=== PATIENT | female | born 1935 | race Caucasian/White ===

== ENCOUNTER → 2020-03-23 12:30 | Outpatient (BNVA) | payer MEDICARE, SELFPAY | PROVIDERS: PCP Internal Medicine; Referring Provider Internal Medicine; Visit Provider Physician Assistant | DX: M17.12 Unilateral primary osteoarthritis, left knee (principal) | CPT/HCPCS: 20610; 99212; J1040 ==

== ENCOUNTER 2023-07-09 10:16 | Outpatient (REF) | payer MEDICARE, SELFPAY ==
--- NOTE | ~2023-07-09 | XR_ITS ---
EXAMINATION: XR KNEE, RIGHT CLINICAL INFORMATION: Osteoarthritis. COMPARISON: Radiograph right knee 10/30/2018. TECHNIQUE: Three views of the right knee. FINDINGS: Severe tricompartmental degenerative osteoarthritis with joint space narrowing, subcortical sclerosis and marginal osteophytes, increased compared to 2019. Moderate chondrocalcinosis also increased compared to 2019. No discrete fractures, although evaluation of subtle osseous details is limited in view of the background of degenerative changes. No joint effusion. Diffuse nonspecific soft tissue swelling. Scattered vascular calcifications. XR/XR knee RT 3V IMPRESSION: 1. Severe tricompartmental degenerative osteoarthritis, increased compared to 2019. 2. Moderate chondrocalcinosis, increased compared to 2019. 3. No discrete fractures, although evaluation is limited in view of the background of degenerative changes.
== END 2023-07-09 10:17 | disposition home or self-care (01) ==
LOC: HO.HOSX 10:16
PROVIDERS: Visit Provider Orthopaedic Surgery
DX: M17.11 Unilateral primary osteoarthritis, right knee (principal)
CPT/HCPCS: 73562; 99202

== ENCOUNTER 2023-07-09 10:36 | Outpatient (AMB) | payer MEDICARE, SELFPAY ==
--- NOTE | 2023-07-09 10:41 | MHC.OFFVIS ---
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 The patient states that several years ago she underwent right knee arthroscopic surgery by Dr. Rosales. She got fairly good relief from that surgery initially. Over the last year her discomfort and mechanical symptoms have gotten worse. She states that her right knee will give out several times per day. She has had cortisone injections in the past. The most recent injection gave her minimal relief. She has not able to tolerate anti-inflammatory medicines because she is on Eliquis. She wishes to hold off on surgery for as long as possible. Allergies omeprazole [From PRILOSEC] Allergy (Intermediate, Verified 03/23/20 12:37) HEADACHE Medication List - Last Reconciled 07/09/23 by Kyrie Marks MD alendronate (Fosamax) 70 mg PO QWEEK amiodarone 100 mg PO DAILY apixaban (Eliquis) 2.5 mg PO BID cholecalciferol (vitamin D3) 10 mcg PO DAILY diltiazem HCl (Cardizem) 30 mg PO TID mecobalamin (vitamin B12) mcg IM metoprolol succinate ER 12.5 mg PO DAILY rosuvastatin 5 mg PO DAILY [facility] Surgical History (Updated 07/09/23 @ 10:59 by Rosaura Williamson CMA) History of cholecystectomy (~2003) Hx of right knee surgery (Unknown) Social History (Updated 07/09/23 @ 10:57 by Rosaura Williamson CMA) Patient Tobacco Use Status: Never used Tobacco Physical Exam Vital Signs: BMI result Body Mass Index 23.3 Const Other: Well-nourished well-developed very friendly female awake alert and oriented x3 in no acute distress Extrem Other: Bilateral lower extremity examination shows good capillary refill, no skin lesions noted, normal sensation light touch Right knee examination shows a minimal effusion, palpable crepitus with range of motion, tenderness along her medial joint line, positive Lianne's test Results Reviewed Results Reviewed: X-rays of the patient's right knee show moderate joint space narrowing, subchondral sclerosis, no acute bony abnormalities Assessment & Plan Assessment & Plan (1) Right knee pain: Code(s): M25.561 - Pain in right knee Plan Ms. Mcgrath presents with right knee pain and mechanical symptoms due to degenerative joint disease as well as possible meniscus tearing. I had a lengthy discussion with the patient regarding the treatment options. She wishes to hold off on total knee replacement surgery for as long as possible. I agree with this plan. The patient was fitted for a knee brace to help with her symptoms of instability. I do feel that the knee brace is a medical necessity to help prevent future falls. She has had cortisone injections in the past which gave her minimal relief. Thus, I will see whether or not the patient's insurance company will cover a viscosupplementation injection. I will see her back once the injection is available. Feel free to call me at any time should questions regarding her orthopedic management arise. Thank you very much for asking me to see this very friendly patient. I spent 22 minutes in reviewing the patient's records and imaging studies, seeing the patient and documenting in the medical record. Orders: Orders XR knee RT 3V Today M17.11 - Unilateral primary osteoarthritis, right knee Coding Level of Care Code New Pt Level 2 (38494) Diagnoses Right knee pain M25.561
[2023-07-09 10:49] VITALS: BMI 23.3
== END 2023-07-09 11:21 | disposition home or self-care (01) ==
PROVIDERS: PCP Internal Medicine; Visit Provider Orthopaedic Surgery
DX: M25.561 Pain in right knee (principal)
CPT/HCPCS: 99202

== ENCOUNTER → 2023-07-18 13:13 | Outpatient (BNVA) | payer MEDICARE, SELFPAY | PROVIDERS: PCP Internal Medicine; Visit Provider Orthopaedic Surgery ==

== ENCOUNTER 2023-07-29 13:08 | Outpatient (AMB) | payer MEDICARE, SELFPAY ==
[2023-07-29 13:28] VITALS: BMI 23.3
--- NOTE | 2023-07-29 13:28 | A.OFFVIS_ITS ---
Intake Vital Signs 07/29/23 13:28 Height 5 ft 5 in Weight 140 lb BMI 23.3 Intake Visit Reasons: OV- Right knee Geil-One injection Intake Note: Mignon is a 87 year old female who presents for her Right knee Gel-One injection. She describes her right knee pain as sharp in nature. She has had cortisone injections in the past which gave her minimal relief. She has tried Tylenol which gives her only mild relief. She has not able to take anti- inflammatory medicines because she is on Eliquis. She wishes to hold off on surgery if at all possible. Allergies omeprazole [From PRILOSEC] Allergy (Intermediate, Verified 07/29/23 13:28) HEADACHE Medication List - Last Reconciled 07/29/23 by Kyrie Marks MD alendronate (Fosamax) 70 mg PO QWEEK amiodarone 100 mg PO DAILY apixaban (Eliquis) 2.5 mg PO BID cholecalciferol (vitamin D3) 10 mcg PO DAILY diltiazem HCl (Cardizem) 30 mg PO TID mecobalamin (vitamin B12) mcg IM metoprolol succinate ER 12.5 mg PO DAILY rosuvastatin 5 mg PO DAILY [facility] Surgical History History of cholecystectomy (~2003) Hx of right knee surgery (Unknown) Social History Patient Tobacco Use Status: Never used Tobacco Physical Exam Vital Signs: BMI result Body Mass Index 23.3 Const Other: Well-nourished well-developed very friendly female awake alert and oriented x3 in no acute distress Extrem Other: Bilateral lower extremity examination shows good capillary refill, no skin lesions noted, normal sensation light touch Right knee examination shows a large effusion, palpable crepitus with range of motion, pain with range of motion, range of motion from -3 degrees to 100 degrees, no instability Office Procedures Joint Injection/Drain Joint Injection/Drain Primary Site: right knee Prep: site was prepped using aseptic technique Injected: 1% plain lidocaine and other (30 mg of Gel-One viscosupplementation) Procedure: The patient tolerated the procedure well Coding 50386 - Large joint Procedure code (CPT) selection complete Results Reviewed Results Reviewed: X-rays of the patient's right knee show severe joint space narrowing, subchondral sclerosis, no acute bony abnormalities Assessment & Plan Assessment & Plan (1) Arthritis of right knee: Code(s): M17.11 - Unilateral primary osteoarthritis, right knee Plan Ms. Mcgrath presents with right knee pain due to degenerative joint disease. I had a lengthy discussion with the patient regarding the treatment options. She wishes to hold off on total knee replacement surgery for as long as possible. I agree with this plan. She has not gotten good relief from cortisone injections in the past. Thus, the risks and benefits of a Gel-one viscosupplementation injection were discussed at length with the patient. The patient wished to proceed with the injection. Prior to the injection 30 cc's of clear fluid were aspirated from the patient's right knee. She tolerated the injection well. She will continue with her home exercise program. She will follow up with me on an as-needed basis should her symptoms not plateau at an unacceptable level over the next few months. Feel free to call me at any time should questions regarding her orthopedic management arise. I spent 22 minutes in reviewing the patient's records and imaging studies, seeing the patient and documenting in the medical record. Orders: Orders AMB Joint Injection/Aspiration Today M17.11 - Unilateral primary osteoarthritis, right knee Coding Level of Care Code Est Pt Level 2 (26475) Diagnoses Arthritis of right knee M17.11 CPT Codes Coding - 26110 Large joint: 39951 - Large joint ([id number])
== END 2023-07-29 14:00 | disposition home or self-care (01) ==
PROVIDERS: PCP Internal Medicine; Visit Provider Orthopaedic Surgery
DX: M17.11 Unilateral primary osteoarthritis, right knee (principal)
CPT/HCPCS: 20610; 99212

== ENCOUNTER → 2023-07-29 13:08 | Outpatient (BNVA) | payer MEDICARE, SELFPAY | PROVIDERS: PCP Internal Medicine; Visit Provider Orthopaedic Surgery | DX: M17.11 Unilateral primary osteoarthritis, right knee (principal) | CPT/HCPCS: 20610; 99212; J7326 ==

== ENCOUNTER 2023-10-09 11:30 | Outpatient (AMB) | payer MEDICARE, SELFPAY ==
[2023-10-09 11:30] VITALS: BMI 23.3
--- NOTE | 2023-10-09 11:30 | MHC.OFFVIS ---
Vital Signs 10/09/23 11:30 Height 5 ft 5 in Weight 140 lb BMI 23.3 Intake Visit Reasons: OV - right knee pain, last gel inj 07/29/23 Intake Note: Mignon is an 87 year old female who presents with complaints of progressively worsening right knee pain. The patient describes her pain as sharp and severe in nature, 10/10. Her pain has gotten worse over the last few years in spite of continued non operative treatments. She has had both cortisone injections and viscosupplementation injections which gave her minimal relief. She has tried Tylenol which gives only mild relief. She has not able to take anti-inflammatory medicines because she is on Eliquis. She has done physical therapy exercises which aggravated her pain. The patient has difficulty walking even short distances because of her pain. At this point her right knee pain is interfering with her activities of daily living and her ability to sleep well through the night. Allergies omeprazole [From PRILOSEC] Allergy (Intermediate, Verified 10/09/23 11:33) HEADACHE Medication List - Last Reconciled 10/09/23 by Kyrie Marks MD alendronate (Fosamax) 70 mg PO QWEEK amiodarone 100 mg PO DAILY apixaban (Eliquis) 2.5 mg PO BID cholecalciferol (vitamin D3) 10 mcg PO DAILY diltiazem HCl (Cardizem) 30 mg PO TID gabapentin 100 mg PO TID mecobalamin (vitamin B12) mcg IM metoprolol succinate ER 12.5 mg PO DAILY rosuvastatin 5 mg PO DAILY [facility] Surgical History History of cholecystectomy (~2003) Hx of right knee surgery (Unknown) Social History Patient Tobacco Use Status: Never used Tobacco Physical Exam Vital Signs: BMI result Body Mass Index 23.3 Const Other: Well-nourished well-developed very friendly female awake alert and oriented x3 in no acute distress Extrem Other: Bilateral lower extremity examination shows good capillary refill, no skin lesions noted, normal sensation light touch Right knee examination shows a minimal effusion, palpable crepitus with range of motion, pain with range of motion, range of motion from -3 degrees to 115 degrees, no instability Results Reviewed Results Reviewed: X-rays of the patient's right knee show end-stage degenerative joint disease with grade 4 [id number] arthritis, subchondral sclerosis, osteophyte formation, no acute bony abnormalities Assessment & Plan Assessment & Plan (1) Arthritis of right knee: Code(s): M17.11 - Unilateral primary osteoarthritis, right knee Category: Medical Plan Ms. Mcgrath presents with progressively worsening right knee pain due to end-stage degenerative joint disease. I had a lengthy discussion with the patient regarding the treatment options. At this point she has failed continued non operative treatments. The risks and benefits of right total knee replacement surgery were discussed at length with the patient. The patient wishes to proceed with surgery. She will be scheduled for next available date. I will see her back 1 week prior to her surgery to answer any final questions that she might have. Feel free to call me at any time should questions regarding her orthopedic management arise. I spent 20 minutes in reviewing the patient's records and imaging studies, seeing the patient and documenting in the medical record. Coding Level of Care Code Est Pt Level 3 (61661) Diagnoses Arthritis of right knee M17.11
== END 2023-10-09 12:42 | disposition home or self-care (01) ==
LOC: HO.HOS 11:30
PROVIDERS: PCP Internal Medicine; Visit Provider Orthopaedic Surgery
DX: M17.11 Unilateral primary osteoarthritis, right knee (principal)
CPT/HCPCS: 99213

== ENCOUNTER → 2023-10-09 11:30 | Outpatient (BNVA) | payer MEDICARE, SELFPAY | PROVIDERS: PCP Internal Medicine; Visit Provider Orthopaedic Surgery | DX: M17.11 Unilateral primary osteoarthritis, right knee (principal); M25.561 Pain in right knee | CPT/HCPCS: 99212 ==

== ENCOUNTER → 2023-11-13 10:58 | Outpatient (BNVA) | payer MEDICARE, SELFPAY | PROVIDERS: PCP Internal Medicine | DX: Z01.818 Encounter for other preprocedural examination (principal) ==

== ENCOUNTER 2023-12-12 08:12 | Outpatient (AMB) | payer MEDICARE, SELFPAY ==
--- NOTE | 2023-12-12 08:14 | MHC.OFFVIS ---
Intake Visit Reasons: R NAVA w/ 12/16/23 Intake Note: Mignon is an 87 year old female who presents with complaints of progressively worsening right knee pain. The patient describes her pain as sharp and severe in nature, 03/12. Her pain has gotten worse over the last few years in spite of continued non operative treatments. She has had both cortisone injections and viscosupplementation injections which gave her minimal relief. She has tried Tylenol which gives only mild relief. She has not able to take anti-inflammatory medicines because she is on Eliquis. She has done physical therapy exercises which aggravated her pain. The patient has difficulty walking even short distances because of her pain. At this point her right knee pain is interfering with her activities of daily living and her ability to sleep well through the night. Allergies omeprazole [From PRILOSEC] Allergy (Severe, Verified 12/12/23 08:14) severe headache Medication List - Last Reconciled 12/12/23 by Kyrie Marks MD alendronate (Fosamax) 70 mg PO QWEEK amiodarone 100 mg PO QAM apixaban (Eliquis) 5 mg PO BID cholecalciferol (vitamin D3) 10 mcg PO QAM diltiazem HCl ER (DILT-XR) 240 mg PO QAM gabapentin 100 mg PO TID mecobalamin (vitamin B12) 1,000 mcg IM QMONTH metoprolol succinate ER 12.5 mg PO BID rosuvastatin 10 mg PO QAM walker Folding front wheeled walker [facility] Medical History Pernicious anemia Skin cancer Arthritis History of cardioversion COPD (chronic obstructive pulmonary disease) Trigeminal neuralgia Fracture Osteopenia Osteoporosis Pancreatitis Atrial fibrillation Surgical History Hx of endoscopic retrograde cholangiopancreatography Hx of tonsillectomy Hx of vertebroplasty H/O colonoscopy History of cholecystectomy (~2003) Hx of right knee surgery (Unknown) Social History Are you a primary youth care worker to a significant other at home: No Do you presently have visiting nurse or other home services: No Patient Tobacco Use Status: Former Tobacco user Tobacco use type: Cigarette Years Smoked: 5 Physical Exam Const Other: Well-nourished well-developed very friendly female awake alert and oriented x3 in no acute distress Extrem Other: Bilateral lower extremity examination shows good capillary refill, no skin lesions noted, normal sensation light touch Right knee examination shows a minimal effusion, palpable crepitus with range of motion, pain with range of motion, range of motion from -3 degrees to 115 degrees, no instability Results Reviewed Results Reviewed: X-rays of the patient's right knee show end-stage degenerative joint disease with grade 4 [id number] arthritis, subchondral sclerosis, osteophyte formation, no acute bony abnormalities Assessment & Plan Assessment & Plan (1) Arthritis of right knee: Code(s): M17.11 - Unilateral primary osteoarthritis, right knee Category: Medical Plan Ms. Mcgrath presents with progressively worsening right knee pain due to end-stage degenerative joint disease. I had a lengthy discussion with the patient regarding the treatment options. At this point she has failed continued non operative treatments. The risks and benefits of right total knee replacement surgery were discussed at length with the patient. The patient wishes to proceed with surgery. The patient does live on the 2nd floor and she has multiple comorbidities including atrial fibrillation, trigeminal neuralgia, chronic obstructive pulmonary disease, osteoporosis with subsequent vertebroplasty, hypercholesterolemia and pernicious anemia. Because of these factors I do believe that the patient would benefit significantly from inpatient rehabilitation following her surgery. [employer] web services will be consulted for inpatient rehabilitation. I spent 22 minutes in reviewing the patient's records and imaging studies, seeing the patient and documenting in the medical record. Coding Level of Care Code Est Pt Level 3 (91023) Diagnoses Arthritis of right knee M17.11
== END 2023-12-12 08:40 | disposition home or self-care (01) ==
PROVIDERS: PCP Internal Medicine; Visit Provider Orthopaedic Surgery
DX: M17.11 Unilateral primary osteoarthritis, right knee (principal)
CPT/HCPCS: 99213

== ENCOUNTER → 2023-12-12 08:12 | Outpatient (BNVA) | payer MEDICARE, SELFPAY | PROVIDERS: PCP Internal Medicine; Visit Provider Orthopaedic Surgery | DX: M17.11 Unilateral primary osteoarthritis, right knee (principal); Z79.01 Long term (current) use of anticoagulants | CPT/HCPCS: 99212 ==

== ENCOUNTER 2023-12-16 06:11 | Inpatient (IN) | payer MEDICARE, SELFPAY ==
[2023-12-10 13:22] VITALS: BP 109/55; PULSE 65; RESP 18; O2SAT 97; BMI 23.5
--- NOTE | 2023-12-10 13:38 | P.CONAN_ITS ---
Documented by User: Danae Berg NP 12/12/23 13:12 HPI - Anesthesia Eval Consult details Narrative: 88yo F for Right Knee Replacement Total, 12/16/23 Medically optimized per PCP Cardiac optimized No recent illness No CP/SOB with walking Afib: Eliquis, amioderone Trigeminal neuralgia: 09/2023, gabapentin PMFSH Active Problems Active Problems: All Active Problems Right knee pain (Acute) Arthritis of right knee (Acute) Tricompartment osteoarthritis of left knee (Acute) Past Medical History Medical History Pernicious anemia Skin cancer Arthritis History of cardioversion COPD (chronic obstructive pulmonary disease) Trigeminal neuralgia Fracture Osteopenia Osteoporosis Pancreatitis Atrial fibrillation Family History Family history of problems with anesthesia: No Surgical History Surgical History Hx of endoscopic retrograde cholangiopancreatography Hx of tonsillectomy Hx of vertebroplasty H/O colonoscopy History of cholecystectomy (~2003) Hx of right knee surgery (Unknown) History of Problems with Anesthesia: No Social History Social History Are you a primary career manager to a significant other at home: No Do you presently have visiting nurse or other home services: No Patient Tobacco Use Status: Former Tobacco user Tobacco use type: Cigarette Years Smoked: 5 Use of substances other than those prescribed or required for medical reasons: No Have you been hit, kicked, punched, or otherwise hurt by someone within the past year? If so, by whom?: No Are you DNR?: No Advance Directives: No (brother is primary contact) Advance Directives Information Provided: Yes (brochure given) Advance Directives on File: No Recently lost weight without trying: No Eating poorly because of decreased appetite: No Nutrition Risks: Surgical patient >75years Poor oral hygiene: No Meds Allergies Allergy/AdvReac Type Severity Reaction Status Date / Time omeprazole [From PRILOSEC] Allergy Severe severe Verified 12/16/23 06:19 headache Active Medications: Current Medications Cefazolin Sodium/Dextrose (Ancef) 2 gm in 50 mls @ 100 mls/hr IV PREOP ONE Stop: 12/16/23 10:26 Home Medications ?Medication ?Instructions ?Recorded ?Confirmed ?Last Taken ?Type alendronate 70 mg tablet (Fosamax) 70 mg PO QWEEK 03/23/20 12/12/23 Unknown History amiodarone 100 mg tablet 100 mg PO QAM 03/23/20 12/12/23 12/16/23 History cholecalciferol (vitamin D3) 10 10 mcg PO QAM 03/23/20 12/12/23 Unknown History mcg (400 unit) capsule mecobalamin (vitamin B12) 10,000 1,000 mcg IM QMONTH 03/23/20 12/12/23 Unknown History mcg solution for injection metoprolol succinate 25 mg 12.5 mg PO BID 03/23/20 12/12/23 12/16/23 History tablet,extended release 24 hr gabapentin 100 mg capsule 100 mg PO TID 10/09/23 12/12/23 12/16/23 History apixaban 5 mg tablet (Eliquis) 5 mg PO BID 12/10/23 12/12/23 12/13/23 History diltiazem HCl 240 mg 240 mg PO QAM 12/10/23 12/12/23 12/16/23 History capsule,extended release 24 hr, controlled (DILT-XR) rosuvastatin 10 mg tablet 10 mg PO QAM 12/10/23 12/12/23 Unknown History Exam Height,Weight and Vital Signs: Height 5 ft 5 in Weight 63.957 kg Last Vital Signs Pulse 65 12/10/23 13:22 Resp 18 12/10/23 13:22 BP 109/55 L 12/10/23 13:22 Pulse Ox 97 12/10/23 13:22 O2 Del Method Room Air 12/10/23 13:22 Pertinent Lab Results Pertinent Lab Results: Lab Results 12/10/23 12/10/23 Range/Units 13:35 14:07 Nasal Screen MRSA (PCR) NEGATIVE (Negative) Nasal S. aureus Screen NEGATIVE (Negative) Nasal MRSA/S.aureus Interp SEE NOTE Blood Type O Positive Antibody Screen NEGATIVE CBC and BMP 11/2023 WNL Narrative Narrative: EKG 11/2023 Marked SB @ [address] AV block ECHO 2021 1. LV mildly dilated. Nml LV wall thickness. Nml reg wall motion. Nml LV sys function. LVEF 65-70% 2. Mild dilated LA 3. Ascending aorta 3.7cm 4. No hemodynamically signif valve disease 5. c/w 2018, degree of TR and MR decreased Airway Mallampati Class: I TM Dist: >3cm Neck ROM: Full Loose/Missing/Broken Teeth: Yes (Molars, crowns throughout) Heart: RRR Lungs: CTAB Assessment and Plan Assessment Anesthesia Assessment: Anesthesia Plan Discussed and PAT Visit Final Anesthetic Review Family History of Problems with Anesthesia: No History of Problems with Anesthesia: No Documented by User: Yvonne Menendez MD 12/16/23 08:47 PMFSH Past Medical History Medical History Pernicious anemia Skin cancer Arthritis History of cardioversion COPD (chronic obstructive pulmonary disease) Trigeminal neuralgia Fracture Osteopenia Osteoporosis Pancreatitis Atrial fibrillation Surgical History Surgical History Hx of endoscopic retrograde cholangiopancreatography Hx of tonsillectomy Hx of vertebroplasty H/O colonoscopy History of cholecystectomy (~2003) Hx of right knee surgery (Unknown) Social History Social History Are you a primary career manager to a significant other at home: No Do you presently have visiting nurse or other home services: No Patient Tobacco Use Status: Former Tobacco user Tobacco use type: Cigarette Years Smoked: 5 Use of substances other than those prescribed or required for medical reasons: No Have you been hit, kicked, punched, or otherwise hurt by someone within the past year? If so, by whom?: No Are you DNR?: No Advance Directives: No (brother is primary contact) Advance Directives Information Provided: Yes (brochure given) Advance Directives on File: No Recently lost weight without trying: No Eating poorly because of decreased appetite: No Nutrition Risks: Surgical patient >75years Poor oral hygiene: No Meds Allergies Allergy/AdvReac Type Severity Reaction Status Date / Time omeprazole [From PRILOSEC] Allergy Severe severe Verified 12/16/23 06:19 headache Home Medications ?Medication ?Instructions ?Recorded ?Confirmed ?Last Taken ?Type alendronate 70 mg tablet (Fosamax) 70 mg PO QWEEK 03/23/20 12/12/23 Unknown History amiodarone 100 mg tablet 100 mg PO QAM 03/23/20 12/12/23 12/16/23 History cholecalciferol (vitamin D3) 10 10 mcg PO QAM 03/23/20 12/12/23 Unknown History mcg (400 unit) capsule mecobalamin (vitamin B12) 10,000 1,000 mcg IM QMONTH 03/23/20 12/12/23 Unknown History mcg solution for injection metoprolol succinate 25 mg 12.5 mg PO BID 03/23/20 12/12/23 12/16/23 History tablet,extended release 24 hr gabapentin 100 mg capsule 100 mg PO TID 10/09/23 12/12/23 12/16/23 History apixaban 5 mg tablet (Eliquis) 5 mg PO BID 12/10/23 12/12/23 12/13/23 History diltiazem HCl 240 mg 240 mg PO QAM 12/10/23 12/12/23 12/16/23 History capsule,extended release 24 hr, controlled (DILT-XR) rosuvastatin 10 mg tablet 10 mg PO QAM 12/10/23 12/12/23 Unknown History Exam Airway Heart: Afib Assessment and Plan Assessment Anesthesia Assessment: Chart Reviewed Final Anesthetic Review NPO: Yes ASA Class: III Final Preanesthetic Review: No Changes in Pt Med Stat, Meds/Allgs Chart Reviewed, Consent Obtained/Reviewed and Anes Risks/Benef Reviewed Patient Risk: Intermediate Procedure Risk: Intermediate Anesthetic Plan Anesthetic Plan: MAC:, Spinal and Regional Block Disposition: Standard PACU
[2023-12-10 15:41] LABS: MRSA Nasal PCR NEGATIVE (Negative); SA Nasal PCR NEGATIVE (Negative)
[2023-12-16] VITALS (13 sets, daily range): BP systolic 90–112; BP diastolic 42–60; PULSE 54–66; RESP 14–18; TEMP 36.1–37.1; O2SAT 94–96
--- OUTSIDE RECORDS SUMMARY | 2023-12-16 06:15 | XMS_ITS | Continuity of Care Document ---
Author Organization [facility]ocrinolo gy and Diabetes Address [address] [place] [address]- Care Team Providers Care Header Setup Operator Name Role Phone Joseph Wagner MD Primary Care Physician Encounter [facility] Date(s): 08/21/23 - 09/20/23 [facility] Endocr[facility]ology and Diabetes [address] [place] [address]- Allergies, Adverse Reactions, Alerts Substance Reaction Severity Status Prilosec headache Active Medications alendronate 70 mg oral tablet 1 tablet = 70 mg, By Mouth, Every week, with 6-8 oz plain water, at least 30 minutes before first food, beverage, or medication of the day, # 12 tablet, 3 Refills, Maintenance, 08/15/23 12:58:00 EDT,Tablet, [facility]/pharmacy #[id number], 165, cm, 08/16/22 13:10... Start Date: 08/15/23 Status: Ordered amiODARONE = 100 mg, By Mouth, Daily in AM, 0 Refills, Maintenance, 01/04/22 9:18:00 EDT, Partial fill upon patient request if the prescription is for a schedule II opioid drug. Start Date: 01/04/22 Status: Ordered DilTIAZem Hydrochloride ER 240 mg/24 hours oral capsule, extended release 1 capsule = 240 mg, By Mouth, Daily, # 30 capsule, 0 Refills, Maintenance, 04/21/19 9:38:14 EST, ERCapsule Start Date: 04/21/19 Status: Ordered Eliquis 5 mg oral tablet 1 tablet = 5 mg, By Mouth, 2 times a day, # 60 tablet, 0 Refills, Maintenance, 01/14/17 19:39:03, Tablet Start Date: 01/14/17 Status: Ordered furosemide 20 mg oral tablet 20 mg, 1, tablet, By Mouth, Daily, prn swelling of ankles, # 30 tablet, Refills 0, Maintenance, 01/14/17 19:38:00 EDT Start Date: 01/14/17 Status: Ordered metoprolol 25 mg oral tablet 12.5 mg, 0.5, tablet, By Mouth, 2 times a day, # 60 tablet, Refills 0, Maintenance, 01/14/17 19:39:14 EDT Start Date: 01/14/17 Status: Ordered ProAir HFA 90 mcg/inh inhalation aerosol with adapter 1 puffs, Inhalation, PRN for wheezing, # 8.5 Gm, 0 Refills, Maintenance, 03/09/15 10:12:42, Aerosol Start Date: 03/09/15 Status: Ordered Reclast = 5 mg, IV Infusion, Once, yearly osteoporosis, 0 Refills, Maintenance, 11/22/20 8:33:00 EDT, Partial fill upon patient request if the prescription is for a schedule II opioid drug. Start Date: 11/22/20 Status: Ordered rosuvastatin 5 mg oral tablet 1 tablet = 5 mg, By Mouth, Daily in AM, 0 Refills, Maintenance, 10/14/18 15:19:45 EDT Start Date: 10/14/18 Status: Ordered Vitamin B12 = 1,000 mcg, Intramuscular, Every 28 days, 0 Refills, Maintenance, 04/05/14 12:40:03 Start Date: 04/05/14 Status: Ordered Vitamin D3 = 500 International_Units, By Mouth, Daily, 0 Refills, Maintenance, 04/05/14 12:38:03 EST Start Date: 04/05/14 Status: Ordered Problem List Condition Confirmation Course Effective Dates Status Health St atus Informant Afib Confirmed Active COPD (chronic obstructive pulmonary disease) Confirmed Active B12 deficiency Confirmed Active Old Compression fracture of cervical spine, C2 Confirmed Active H. pylori duodenitis Confirmed Active Ex-smoker Confirmed Active Fracture Of Thoracic Spine, T11 Confirmed Active GERD (gastroesophageal reflux disease) Confirmed Active Pulmonary nodule, right 1 Confirmed Active OA (osteoarthritis), knee Confirmed Active Osteoporosis Confirmed Active Peptic ulcer disease Confirmed Active 1followed by Dr Andrade Patient Care team information Care Team Personnel Name: Sujey Abad RN Position: S RN Member Role: Primary Care Nurse Name: Joseph Wagner MD Position: S Outreach Member Role: PCP Address: Address: [address] [place] [address] [place] [address]- Care Team Related Persons Name: LAURI JOE Address: home [address] [place] [address] Name: ASHLEY DIAZ Address: home [address] [place] [address]
--- OUTSIDE RECORDS SUMMARY | 2023-12-16 06:15 | XMS_ITS | Continuity of Care Document ---
Author Organization [facility]ocrinolo gy [facility] Diabetes Address [address] [place] [address]- Care Team Providers Care Caterpillar Mechanic Name Role Phone Joseph Wagner MD Primary Care Physician Encounter [facility] [place] Date(s): 02/12/22 - 03/14/22 [facility] Diabetes [address] [place] [address]- Allergies, Adverse Reactions, Alerts Substance Reaction Severity Status Prilosec headache Active Medications amiODARONE = 100 mg, By Mouth, Daily [...] by Dr Andrade Patient Care team information Personnel Name: Joseph Wagner MD Address: Address: [address] [place] [address] [address] [place] [address]
--- OUTSIDE RECORDS SUMMARY | 2023-12-16 06:15 | XMS_ITS | Continuity of Care Document ---
Author Organization [facility] Endocrinolo gy and Diabetes Address [address] [place] [address]- Care Team Providers Care Consulting Software Engineer Name Role Phone Joseph Wagner MD Primary Care Physician Encounter [facility] [place] Date(s): 12/27/20 - 01/26/21 [facility] Endocrinology and Diabetes [address] [place] [address] Allergies, Adverse Reactions, Alerts Substance Reaction Severity Status Prilosec Active Medications amiodarone 400 mg oral tablet 1 tablet = 400 mg, By Mouth, 2 times a day, 0 Refills, Maintenance, 01/14/17 19:40:12 Start Date: 01/14/17 Status: Ordered DilTIAZem Hydrochloride ER 240 mg/24 [...] 19:39:03, Tablet Start Date: 01/14/17 Status: Ordered Fish Oil oral capsule 1 capsule, By Mouth, Daily, # 100 capsule, 0 Refills, Maintenance, 01/14/17 19:37:17, Capsule Start Date: 01/14/17 Status: Ordered furosemide 20 mg oral tablet 20 mg, 1, tablet, By Mouth, Daily, # 30 tablet, Refills 0, Maintenance, 01/14/17 19:38:00 Start Date: 01/14/17 Status: Ordered Lansoprazole By Mouth, Daily, 0 Refills, Maintenance, 11/22/20 8:33:00 EDT, Partial fill upon patient request ifthe prescription is for a schedule II opioid drug. Start Date: 11/22/20 Status: Ordered metoprolol 25 mg oral tablet 25 mg, 1, tablet, By Mouth, 2 times a day, # 60 tablet, Refills 0, Maintenance, 01/14/17 19:39:14 Start Date: 01/14/17 Status: Ordered ProAir HFA 90 mcg/inh inhalation aerosol with adapter 1 puffs, Inhalation, PRN for wheezing, # 8.5 Gm, 0 Refills, Maintenance, 03/09/15 10:12:42, Aerosol Start Date: 03/09/15 Status: Ordered Reclast = 5 mg, IV Infusion, Once, 0 Refills, Maintenance, 11/22/20 8:33:00 EDT, Partial fill upon patient request if the prescription is for a schedule II opioid drug. Start Date: 11/22/20 Status: Ordered rosuvastatin 5 mg oral tablet 0 Refills, Maintenance, 10/14/18 15:19:45 EDT Start Date: 10/14/18 Status: Ordered Vitamin B12 = 1,000 mcg, Intramuscular, Every 28 days, 0 Refills, Maintenance, 04/05/14 12:40:03 Start Date: 04/05/14 Status: Ordered Vitamin D3 = 500 International_Units, By Mouth, 2 times a day, 0 Refills, Maintenance, 04/05/14 12:38:03 Start Date: 04/05/14 Status: Ordered Problem List Condition Effective Dates Status Health Status Inform ant Afib(Confirmed) Active COPD (chronic obstructive pu lmonary disease)(Confirmed) Active B12 deficiency(Confirmed) Active Old Compression fracture of cervical spine, C2(Confirmed) Active H. pylori duodenitis(Confirmed) Active Ex-smoker(Confirmed) Active Fracture Of Thoracic Spine, T11(Confirmed) Active GERD (gastroesophageal reflu x disease)(Confirmed) Active Pulmonary nodule, right(Confirmed) 1 Active OA (osteoarthritis), knee(Confirmed) Active Osteoporosis(Confirmed) Active Peptic ulcer disease(Confirmed) Active 1followed by Dr Andrade
--- OUTSIDE RECORDS SUMMARY | 2023-12-16 06:15 | XMS_ITS | Continuity of Care Document ---
Author Organization [facility] ter Address [address] [place] [address]- Care Team Providers Care Emergency Management Specialist Name Role Phone Joseph Wagner MD Primary Care Physician Encounter [facility] R [id number] Date(s): 11/23/20 - 01/18/[address] [address]- Attending Physician: Duyen Breaux MD Admitting Physician: Duyen Breaux MD Referring Physician: Duyen Breaux MD Allergies, Adverse Reactions, Alerts Substance Reaction Severity [...]
--- OUTSIDE RECORDS SUMMARY | 2023-12-16 06:15 | XMS_ITS | Continuity of Care Document ---
Author Organization [facility] ter Address [address] [place] [address]- Care Team Providers Care Assistant Merchandise Manager Name Role Phone Joseph Wagner MD Primary Care Physician Encounter [facility] Date(s): 06/15/19 - 06/22/[address] [address]- [facility] Attending Physician: Pramod URIBE, Shannan Sneed Allergies, Adverse Reactions, Alerts Substance Reaction Severity Status Prilosec Active Medications amiodarone 400 mg oral tablet 1 tablet = 400 mg, By Mouth, 2 times a day, 0 Refills, Maintenance, 01/14/17 19:40:12 Start Date: 01/14/17 Status: Ordered Aspirin = 81 mg, By Mouth, Daily, 0 Refills, Maintenance, 04/05/14 12:40:34 Start Date: 04/05/14 Status: Ordered Cardizem 120 mg oral tablet 1.5 tablet = 180 mg, By Mouth, 2 times a day, # 270 tablet, 0 Refills, Maintenance, 01/14/17 19:39:48, Tablet Start Date: 01/14/17 Status: Ordered DilTIAZem Hydrochloride [...] 19:37:17, Capsule Start Date: 01/14/17 Status: Ordered Forteo 600 mcg/2.4 mL subcutaneous device = 20 mcg, Subcutaneous Infusion, Daily, # 2.4 mL, 4 Refills, Maintenance, 04/16/16 17:02:00 Start Date: 04/16/16 Stop Date: 09/13/16 Status: Ordered furosemide 20 mg oral tablet 20 mg, 1, tablet, By Mouth, Daily, # 30 tablet, Refills 0, Maintenance, 01/14/17 19:38:00 Start Date: 01/14/17 Status: Ordered Gas-X = 80 mg, 3 times a day after meals and bedtime, PRN Gas, 0 Refills, Maintenance, 08/22/13 6:27:56 Start Date: 08/22/13 Status: Ordered Ibuprofen 800 mg, By Mouth, Every 8 hours, Maintenance, 04/05/14 12:39:25 Start Date: 04/05/14 Status: Ordered metaxalone 800 mg oral tablet 0 Refills, Maintenance, 10/14/18 15:19:50 EDT Start Date: 10/14/18 Status: Ordered metoprolol 25 mg oral tablet 25 mg, 1, tablet, By Mouth, 2 times a day, # 60 tablet, Refills 0, Maintenance, 01/14/17 19:39:14 Start Date: 01/14/17 Status: Ordered pravastatin 20 mg oral tablet Refills 0, Maintenance, 10/14/18 15:19:54 EDT Start Date: 10/14/18 Status: Ordered Prevacid 30 mg oral enteric coated capsule 1 capsule = 30 mg, By Mouth, Daily, # 30 capsule, 0 Refills, Maintenance, 08/23/13 13:58:51, EC Capsule Start Date: 08/23/13 Status: Ordered ProAir HFA 90 mcg/inh inhalation aerosol with adapter 1 puffs, Inhalation, PRN for wheezing, # 8.5 Gm, 0 Refills, Maintenance, 03/09/15 10:12:42, Aerosol Start Date: 03/09/15 Status: Ordered rosuvastatin 5 mg oral tablet 0 Refills, Maintenance, 10/14/18 15:19:45 EDT Start Date: 10/14/18 Status: Ordered Sudafed Tablet By Mouth, PRN, Maintenance, as needed for congestion, 03/09/15 10:13:16 Start Date: 03/09/15 Status: Ordered Tums 500 mg Tablet = 1,000 mg, By Mouth, 2 times a day, PRN as needed for indigestion, 0 Refills, Maintenance, 08/22/13 6:27:44 Start Date: 08/22/13 Status: Ordered Tylenol with Codeine #3 300 mg-30 mg oral tablet 1 tablet, By Mouth, Every 6 hours, 0 Refills, Maintenance, 04/05/14 12:41:02 Start Date: 04/05/14 Status: Ordered Vitamin B12 = 1,000 mcg, [...]
--- OUTSIDE RECORDS SUMMARY | 2023-12-16 06:15 | XMS_ITS | Continuity of Care Document ---
Author Organization [facility] ter Address [address] [place] [address]- Care Team Providers Care Immigration Guard Name Role Phone Joseph Wagner MD Primary Care Physician [phone] Encounter [facility] [place] Date(s): 06/15/19 - 06/22/[address] [address]- [facility] Attending Physician: Joseph Wagner MD Allergies, Adverse Reactions, Alerts Substance Reaction [...]
--- OUTSIDE RECORDS SUMMARY | 2023-12-16 06:16 | XMS_ITS | Continuity of Care Document ---
Author Organization [facility] Endocrinolo gy and Diabetes Address [address] [place] [address]- Care Team Providers Care Geography Faculty Member Name Role Phone Joseph Wagner MD Primary Care Physician Encounter [facility] Date(s): 04/12/20 - 05/12/20 [facility] Endocrinology and Diabetes [address] [place] [address]- Allergies, Adverse Reactions, Alerts Substance Reaction Severity [...] 01/14/17 19:38:00 Start Date: 01/14/17 Status: Ordered metoprolol 25 [...]
--- OUTSIDE RECORDS SUMMARY | 2023-12-16 06:16 | XMS_ITS | Continuity of Care Document ---
Author Organization [facility] Endocrinolo gy and Diabetes Address [address] [place] [address]- Care Team Providers Care Sound Technician Name Role Phone Joseph Wagner MD Primary Care Physician Encounter [facility] Date(s): 12/15/20 - 01/14/21 [facility] Endocrinology and Diabetes [address] [place] [address]- Allergies, Adverse Reactions, Alerts Substance Reaction Severity [...]
--- OUTSIDE RECORDS SUMMARY | 2023-12-16 06:16 | XMS_ITS | Patient Health Record ---
Author Organization [facility] Address [address] [place] [address] Care Team Providers Care Digital Account Director Name Role Phone Joseph Wagner MD Primary Care Provider Unavail able Angella Gerardo Unavailable [phone] ALLERGIES Allergen (clinical drug ingredient) Drug/Non Drug Allergy documented on EMR Reaction Allergy Type Onset Date Status omeprazole PriLOSEC headache Drug Allergy Active REASON FOR REFERRAL No Information MEDICATIONS Medication SIG (Take, Route, Frequency, Duration) Notes Start Date End Date Status Vitamin B12 Active Vitamin D3 Active dilTIAZem HCl ER 240 MG 1 capsule Orally Once a day for 30 day(s) Active Eliquis 5 MG as directed Orally Active Amiodarone HCl 100 MG 1 tablet Orally On ce a day for 30 day(s) Active Rosuvastatin Calcium 5 MG 1 tablet Orall y Once a day for 30 day(s) Active Metoprolol Tartrate 25 MG 1 tablet with food Orally Twice a day for 30 day(s) Active SOCIAL HISTORY Tobacco Use: Social History Observation Description Date Details (start date - stop date) Former Smoker NA - NA Sex Assigned At : Social History Observation Description Sex Assigned At Unknown Tobacco Use/Smoking Question Answer Notes Are you a: former smoker Additional Findings: Tobacco Non-User Ex-cigaret te smoker Alcohol Screen Question Answer Notes Did you have a drink containing alcohol in the p ast year? 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 confirmed [id number] Problem Hallux valgus (acquired), right foot (M20.11) Active confirmed [id number] PLAN OF TREATMENT No Information Insurance Providers Payer Name Payer Address Payer Phone Subscriber Number Group Number Insured Name Patient Relationship to Insured Coverage Start Date Coverage End Date [employer] [place] [employer]age [address] [facility] RAYNA romero [phone] [id number] Mignon Mcgrath Self - patient is the insured MEDICAL (GENERAL) HISTORY Medical History History ICD Code Arthritis Back,Hip,and Knee pain Broken bones Cataracts covid-19 Diverticulosis Gall bladder problems Headaches/Migraines Heart disease Osteoporosis Sciatica chronic sinusitis Measles Mumps Chicken pox Surgical History Surgery Date(Month/Year) gall bladder 04/1992
--- OUTSIDE RECORDS SUMMARY | 2023-12-16 06:16 | XMS_ITS | Continuity of Care Document ---
Author Organization [facility] Endocrinolo gy and Diabetes Address [address] [place] [address]- Care Team Providers Care Sr. Consultant Name Role Phone Joseph Wagner MD Primary Care Physician Encounter [facility] Date(s): 02/07/22 - 03/09/22 [facility] Endocrinology and Diabetes [address] [place] [id number] Allergies, Adverse Reactions, Alerts Substance Reaction [...] Personnel Name: Joseph Wagner MD Address: Address: [address] [place] [address] [address] [place] [address]
--- OUTSIDE RECORDS SUMMARY | 2023-12-16 06:16 | XMS_ITS | Continuity of Care Document ---
Author Organization [facility] Endocrinolo gy [facility] Diabetes Address [address] [place] [address]- Care Team Providers Care Material Handling Technician Name Role Phone Joseph Wagner MD Primary Care Physician [place] [facility] [place] [place]s): 11/10/20 - 12/10/20 [facility] Endocrinology and Diabetes [address] [place] [address]- Allergies, Adverse Reactions, Alerts Substance Reaction Severity [...]
--- OUTSIDE RECORDS SUMMARY | 2023-12-16 06:16 | XMS_ITS | Continuity of Care Document ---
Author Organization [facility] Endocrinolo gy and Diabetes Address [address] [place] [address]- Care Team Providers Care Seamstress Fitter Name Role Phone Joseph Wagner MD Primary Care Physician [place] [facility](s[place] 12/16/20 - 01/15/21 [facility] Endocrinology and Diabetes [address] [place] [address]- Allergies, Adverse Reactions, Alerts Substance Reaction Severity [...]
--- OUTSIDE RECORDS SUMMARY | 2023-12-16 06:16 | XMS_ITS | Continuity of Care Document ---
Author Organization [facility] Endocrinolo gy and Diabetes Address [address] [place] [address]- Care Team Providers Care Hand Candle Dipper Name Role Phone Joseph Wagner MD Primary Care Physician Encounter [facility] Date(s): 12/30/20 - 01/29/21 [facility] Endocrinology and Diabetes [address] [place] [address] Allergies, Adverse Reactions, Alerts Substance Reaction Severity [...]
--- OUTSIDE RECORDS SUMMARY | 2023-12-16 06:16 | XMS_ITS | Continuity of Care Document ---
Author Organization [facility] Endocrinolo gy and Diabetes Address [address] [place] [address]- Care Team Providers Care Green Chain Off Bearer Name Role Phone Joseph Wagner MD Primary Care Physician Encounter [facility] [place] Date(s): 10/15/19 - 11/14/19 [facility] Endocr[facility]ology and Diabetes [address] [place] [address]- [facility] Attending Physician: Admkirstin, Nuno Admitting Physician: Admtr, Nuno Referring Physician: Admtr, Ar8 Allergies, Adverse Reactions, Alerts Substance Reaction Severity Status Prilosec Active Medications alendronate 70 mg oral tablet 1 tablet = 70 mg, By Mouth, Every week, with 6-8 oz plain water, at least 60 minutes before first food, beverage, or medication of the day, # 4 tablet, 11 Refills, Maintenance, 10/15/19 14:11:00 EDT,Tablet, [facility]/pharmacy #[id number], 164.4, cm, 10/15/19 13:... Start Date: 10/15/19 Status: Ordered amiodarone 400 mg oral tablet 1 tablet = 400 mg, By Mouth, 2 times a day, 0 Refills, Maintenance, 01/14/17 19:40:12 Start Date: 01/14/17 Status: Ordered Aspirin = 81 mg, By Mouth, Daily, 0 Refills, Maintenance, 04/05/14 12:40:34 Start Date: 04/05/14 Status: Ordered DilTIAZem Hydrochloride ER 240 mg/24 [...] 01/14/17 19:38:00 Start Date: 01/14/17 Status: Ordered Ibuprofen 800 mg, By Mouth, Every 8 hours, Maintenance, 04/05/14 12:39:25 Start Date: 04/05/14 Status: Ordered metaxalone 800 mg oral tablet 0 Refills, Maintenance, 10/14/18 15:19:50 EDT Start Date: 10/14/18 Status: Ordered metoprolol 25 mg oral tablet 25 mg, 1, tablet, By Mouth, 2 times a day, # 60 tablet, Refills 0, Maintenance, 01/14/17 19:39:14 Start Date: 01/14/17 Status: Ordered Prevacid 30 mg oral enteric [...]
--- OUTSIDE RECORDS SUMMARY | 2023-12-16 06:16 | XMS_ITS | Continuity of Care Document ---
Author Organization [facility]ocrinolo gy [facility] Diabetes Address [address] [place] [address]- Care Team Providers Care Transfer Station Operator Name Role Phone Joseph Wagner MD Primary Care Physician [phone] Encounter [facility] Date(s): 12/30/20 - 01/29/21 [facility] Endocrinology and Diabetes [address] [place] [id number] Allergies, Adverse Reactions, Alerts Substance [...]
--- OUTSIDE RECORDS SUMMARY | 2023-12-16 06:16 | XMS_ITS | Continuity of Care Document ---
Author Organization [facility] Endocrinolo gy [facility] Diabetes Address [address] [place] [address]- Care Team Providers Care Terrazzo Layer Name Role Phone Joseph Wagner MD Primary Care Physician [phone] Encounter [facility] Date(s): 12/19/20 - 01/18/21 [facility] Endocrinology and Diabetes [address] [place] [address]- Allergies, Adverse Reactions, Alerts Substance Reaction Severity [...]
--- OUTSIDE RECORDS SUMMARY | 2023-12-16 06:16 | XMS_ITS | Continuity of Care Document ---
Author Organization [facility]inolo gy [facility] Diabetes Address [address] [place] [address]- Care Team Providers Care Special Forces Communications Sergeant Name Role Phone Joseph Wagner MD Primary Care Physician [phone] [place] [facility]): 08[place]12[place]23 - 09/14/23 [facility] Endocr[facility]ology [facility] Diabetes [address] [place] [address]- Encounter Diagnosis Osteoporosis(Discharge Diagnosis) - 08/15/23 Attending Physician: Duyen Breaux MD Admitting Physician: Duyen Breaux MD Referring Physician: Joseph Wagner MD Allergies, Adverse Reactions, Alerts Substance Reaction Severity Status Prilosec headache Active Medications alendronate 70 mg oral tablet 1 tablet = 70 mg, By Mouth, Every week, with 6-8 oz plain water, at least 30 minutes before first food, beverage, or medication of the day, # 12 tablet, 3 Refills, Maintenance, 08/15/23 12:58:00 EDT,Tablet, [facility]/pharmacy #[id number], 165, cm, 08/16/22 13:10... Start [...] day, # 60 tablet, 0 Refills, Maintenance, 08/14/17 19:39:03, Tablet Start Date: 01/14/17 Status: Ordered [...] disease Confirmed Active 1followed by Dr Andrade Diagnosis Diagnosis Type Effective Dates Health Status Cl inical Service Informant Osteoporosis Discharge Diagnosis 08/15/23 Patient Care team information Care Team Personnel Name: Sujey Abad RN Position: [facility] RN Member Role: Primary Care Nurse Name: Joseph Wagner MD Position: [facility] Outreach Member Role: PCP Address: Address: [address] [place] [address] Care Team Related Persons Name: JOE CARREON Address: home [address] [place] [address] Name: ASHLEY DIAZ Address: home [address] [place] [address]
--- OUTSIDE RECORDS SUMMARY | 2023-12-16 06:16 | XMS_ITS | Continuity of Care Document ---
Author Organization [facility] Address [address] [place] [address]- Care Team Providers Care Edi Consultant Name Role Phone Joseph Wagner MD Primary Care Physician Encounter [facility] Date(s): 08/16/22 - 09/15/22 [facility] [address] [place] [id number] Attending Physician: Nuno Don Admitting Physician: AdmtrNuno Referring Physician: Admtr, Ar8 Allergies, Adverse Reactions, Alerts Substance Reaction Severity Status Prilosec headache Active Medications alendronate 70 mg oral tablet 1 tablet = 70 mg, By Mouth, Every week, with 6-8 oz plain water, at least 30 minutes before first food, beverage, or medication of the day, # 12 tablet, 3 Refills, Maintenance, 08/16/22 13:36:00 EDT,Tablet, [facility]/pharmacy #[id number], 165, cm, 08/16/22 13:10... Start Date: 08/16/22 Status: Ordered amiODARONE = 100 mg, By [...] disease Confirmed Active 1followed by Dr Andrade Note * Event Display: Non BH Lab Results Authored Date: [id number] * Event Display: Bone Density, Non-BH Authored Date: * Event Display: Bone Density, Non-BH Authored Date: * Event Display: Bone Density, Non-BH Authored Date: CT Skeletal system Multisection for bone density * Event Display: Bone Density Authored Date: * Event Display: Bone Density Authored Date: * Event Display: Bone Density Authored Date: MG Breast Views * Event Display: MM Mammogram, Non- BH Authored Date: * Event Display: MM Mammogram, Non- BH Authored Date: Patient Care team information Care Team Personnel Name: Sujey Abad RN Position: S RN Member Role: Primary Care Nurse Name: Joseph Wagner MD Position: S Outreach Member Role: PCP Address: Address: [address] [place] [address] [address] [place] [address]- Care Team Related Persons Name: JOE CARREON Address: home [address] [place] [address] Name: ASHLEY DIAZ Address: home [address] [place] [address]
--- OUTSIDE RECORDS SUMMARY | 2023-12-16 06:16 | XMS_ITS | Continuity of Care Document ---
Author Organization [facility] Address [address] [place] [id number]- Care Team Providers Care Radio Program Director Name Role Phone Joseph Wagner MD Primary Care Physician [phone] Encounter [facility] Date(s): 11/10/21 - 03/15/22 [facility] [address] [place] [id number] Attending Physician: Duyen Breaux MD Admitting Physician: [...] Personnel Name: Joseph Wagner MD Address: Address: [address] [place] [address] [place] [address]
--- OUTSIDE RECORDS SUMMARY | 2023-12-16 06:16 | XMS_ITS | Continuity of Care Document ---
Author Organization [facility] Address [address] [place] [id number]- Care Team Providers Care Business Database Analyst Name Role Phone Joseph Wagner MD Primary Care Physician Encounter [facility] Date(s): 10/02/19 - 11/14/19 [facility] [address] [place] [id number] Attending Physician: Duyen Breaux MD Allergies, Adverse Reactions, [...]
--- OUTSIDE RECORDS SUMMARY | 2023-12-16 06:16 | XMS_ITS | Continuity of Care Document ---
Author Organization [facility] Address [address] [place] [address]- Care Team Providers Care Engineering Mathematician Name Role Phone Joseph Wagner MD Primary Care Physician Encounter [facility] Date(s): 03/09/20 - 04/08/20 [facility] [address] [place] [id number] Allergies, Adverse Reactions, Alerts Substance Reaction Severity [...]
--- OUTSIDE RECORDS SUMMARY | 2023-12-16 06:16 | XMS_ITS | Continuity of Care Document ---
Author Organization [facility] Address [address] [place] [address]- Care Team Providers Care Drawer In Jacquard Loom Name Role Phone Joseph Wagner MD Primary Care Physician Encounter [facility] Date(s): 07/12/22 - 08/11/22 [facility] [address] [place] [address] Allergies, Adverse Reactions, Alerts Substance Reaction Severity Status Prilosec headache Active Medications alendronate 70 mg oral tablet 1 tablet = 70 mg, By Mouth, Every week, with 6-8 oz plain water, at least 30 minutes before first food, beverage, or medication of the day, # 12 tablet, 3 Refills, Maintenance, 03/18/22 20:41:00 EDT,Tablet, [facility]/pharmacy #[id number], 165, cm, 01/05/22 11:25... Start Date: 03/18/22 Status: Ordered amiODARONE = 100 mg, By [...] Team Personnel Name: Sujey Abad RN Position: [facility] RN Member Role: Primary Care Nurse Name: Joseph Wagner MD Position: S Outreach Member Role: PCP Address: Address: [address] [place] [address] [place], [place] [id number]- [place] Care Team Related Persons Name: JOE CARREON Address: home [address] [address] Name: ASHLEY DIAZ Address: [address] [place] [address]
[2023-12-16] MEDS: Lactated Ringers 1,000 ML 100 ML IVCONT ×3 (06:31→20:55)
--- NOTE | 2023-12-16 10:16 | PC.NURSE ---
24hr update documented on paper
--- NOTE | 2023-12-16 10:41 | PM.OP ---
Brief Operative Note Date of Service: 12/16/23 Pre-op diagnosis: Right knee degenerative joint disease Post-op diagnosis: same Procedure: Right total knee arthroplasty Implants: Caro Triathlon cemented posterior stabilized total knee arthroplasty with a femoral component size 4 right, tibial component size 5, polyethylene liner size 5 with 13 mm of thickness, an asymmetric patellar component size 29 with 9 mm of thickness Surgeon: Kyrie Marks MD Anesthesia: regional and spinal Was an Internal Controls Manager used for this Procedure?: No Internal Controls Manager: Natalie Johnson Estimated blood loss (mL): 200 Pathology: other (Bony fragments from the right femur, tibia and patella) Condition: stable Disposition: PACU
--- NOTE | 2023-12-16 10:42 | P.OP_ITS ---
Operative Note Operative Note Date of Service: 12/16/23 Narrative: After the patient was identified as Mignon Mcgrath and her right knee was initialed by myself the patient was brought to the holding area where a right leg nerve block was performed by the anesthesiologist in routine fashion. The patient was then brought to the operating room where conscious sedation and spinal anesthesia were performed by the anesthesiologist in routine fashion. The patient was given 2 g of IV Ancef preoperatively for infection prophylaxis. The patient's right lower extremity was prepped and draped in sterile fashion. A formal time-out was completed. The patient's right knee was placed onto a small bump to produce 30? of knee flexion during exposure. A #10 scalpel blade was used to make a midline incision extending 1 handbreadth proximal and distal to the patella. A second #10 scalpel blade was used to dissect the subcutaneous tissues down to the extensor mechanism. The subcutaneous flaps were maintained as thick as possible. A medial parapatellar arthrotomy was then performed using a #10 scalpel blade. The arthrotomy was begun just medial to the patellar tendon. The arthrotomy was continued 1 cm medial to the patella and then 5 mm into the medial aspect of the quadriceps tendon. The infrapatellar fat pad was partially excised to help with exposure. The soft tissue retinaculum was raised one-half of the way around the medial aspect of the proximal tibia. The patella was everted and the knee was flexed to 90?. There was no injury to the patellar tendon or its insertion onto the tibial tubercle. A drill bit was introduced into the distal aspect of the femur with a starting point 1 cm anterior to the origin of the posterior cruciate ligament. The intramedullary alignment lea was put into place. The distal alignment guide was set for a 5 degree valgus cut. The distal cutting block was put into place and was held with 4 pins. The intramedullary alignment lea was removed. Soft tissues were retracted in the distal femoral cut was made using a sagittal saw. The distal aspect of the femur measured to be a size 4 right component. Two drill holes were placed into the distal aspect of the femur marking 3? of external rotation. The distal cutting block was impacted into place and was held with 2 pins. Soft tissues were retracted and the 4 distal femoral cuts were made using a sagittal saw. Final notching and drilling of the distal aspect of the femur were performed in routine fashion. The trial femoral component was impacted into place. The knee was taken through a full range of motion. The patella tracked well. The patella was everted and the knee was flexed to 90?. The trial component was removed and our attention was directed to the proximal tibia. The medial and lateral menisci were removed using a #10 scalpel blade. A small rim of the medial meniscus was left intact to help prevent injury to the medial collateral ligament. A drill bit was then introduced into the proximal tibia with a starting point midway from medial to lateral and one-third of the way posteriorly. The intramedullary alignment lea was put into place. The proximal tibial cutting guide was placed over the alignment lea in line with the 2nd toe. The guide was held in place using 3 pins. The intramedullary alignment lea was removed. Soft tissues were retracted and the proximal tibial cut was made using a sagittal saw. The proximal tibia measured to be a size 5 component. The tibial tray was put into place with a 13 mm liner. The femoral component was impacted into place. The knee was taken through a full range of motion. There was full flexion and full extension. There was no instability with varus or valgus stress testing with the knee in flexion or extension. The patella tracked well with no medially directed force. The rotation of the tibial tray was marked using electrocautery with the knee in extension. The patella was everted and the knee was flexed to 90?. All trial components were removed. The tibial tray was placed onto the proximal tibia in line with the electrocautery dov. The tray was held in place using 3 pins. Final broaching of the proximal tibia was performed in routine fashion. The trial liner and trial femoral component were put into place. The knee was brought into extension and our attention was directed to the patella. The patella measured 25 mm in thickness. The patellar resection guide was set for a 10 mm resection. Soft tissues were retracted and the patella cut was made using a sagittal saw. The remaining patella measured 15 mm in thickness. The undersurface of the patella was m easured to be a size 29 asymmetric component. Three drill holes were placed into the undersurface of the patella in routine fashion. The trial component was put into place. The knee was taken through a full range of motion. The patella tracked well. The patella was everted and the knee was flexed to 90?. All trial components were removed. The knee was once again brought into extension and placed onto a small bump. The knee joint was irrigated with copious amounts of normal saline solution via pulse lavage while the cement was mixed. The patella was everted and the knee was flexed to 90?. A small amount of cement was placed along the posterior aspects of the tibial and femoral components. Cement was then pressurized into the proximal tibia. The tibial component was impacted into place. Any excess cement was removed. The polyethylene liner was then impacted into place. Cement was then pressurized into the distal aspect of the femur. A small amount of cement was placed into the intramedullary canal to help reduce bleeding. The femoral component was impacted into place. Any excess cement was removed. The knee was then brought into extension. Cement was pressurized into the undersurface of the patella. The patellar component was put into place and was held with a patella clamp. Any excess cement was removed. Once the cement had hardened the patellar clamp was removed. The knee was taken through a full range of motion. There was full flexion and extension. There was no instability with varus or valgus stress testing with the knee in flexion or extension. The patella tracked well with no medially directed force. The knee joint was irrigated with copious amounts of normal saline solution via pulse lavage. Any significant bleeding vessels were coagulated. The patient's right knee was placed onto a small bump. The arthrotomy was closed with #2 Ethibond [id number] interrupted suture as well as #1 Vicryl [id number] interrupted suture. The wound was once again irrigated. The subcutaneous tissues were closed with 0 Vicryl and 2-0 Vicryl interrupted sutures. The skin was closed with skin mono. Dry sterile dressing and Hugo bandages were placed over the patient's right knee. The patient was awake and alert. The patient was transferred to the recovery room in stable condition.
--- NOTE | 2023-12-16 12:30 | PHA.MEDREC ---
Pharmacy Consult ? Medication Reconciliation Pharmacy has completed the medication reconciliation. Last took her Eliquis 2 days ago. States she take her alendronate on Sundays and she did in fact take it on 12/15/23
[2023-12-16] MEDS: oxyCODONE HCl Immed Release 5 MG TABLET 10 MG PO (13:55)
[2023-12-16] MEDS: ceFAZolin Sodium/Dextrose,Iso 2 GM/50 ML PIGGYBACK IV ×2 (13:56→23:20)
[2023-12-16] MEDS: methocarbamoL 500 MG TABLET PO ×2 (13:56→20:53)
[2023-12-16] MEDS: Gabapentin 100 MG CAPSULE PO ×2 (13:56→20:52)
--- NOTE | 2023-12-16 15:30 | P.CONHOSP_ITS ---
History of Present Illness Data of Consult Service Date: 12/16/23 Primary Care Provider: Joseph Wagner MD [facility] Reason for consult: Medical management Patient is an 88-year-old female with a PMH significant for paroxysmal AFib on Eliquis, HLD, asthma, trigeminal neuralgia, osteoarthritis, venous insufficiency, pernicious anemia, and GERD who was admitted to the hospital under orthopedics for elective right TKA due to end-stage degenerative joint disease. POD 0. Medical consult for routine medical management. Patient reports 5/10 right knee pain moderately-well controlled by current analgesics. Patient otherwise has no other acute medical complaints at this time. Denies chest pain/pressure, palpitations. No shortness a breath or difficulty breathing. Denies fever, chills, nausea, vomiting, abdominal pain. No numbness or tingling in extremities. Reports has not knowingly been in atrial fibrillation for the past 5 years. Has had 2 prior cardioversions. Reports occasionally notices low blood pressure and bradycardia. Will selectively hold her metoprolol at these times. Also reports history of venous insufficiency with occasional lower leg edema for which she will use Lasix p.r.n.. Blood pressure while in the hospital has been soft, as low as 90/48. Vitals otherwise stable. Review of Systems Review of Systems: Moderate right knee pain Pt otherwise has no acute medical complaints No chest pain/pressure or palpitations Denies shortness of difficulty breathing No fever, chills, nausea, vomiting, abdominal pain Denies numbness or tingling in extremities PMFSH Medical History Pernicious anemia Skin cancer Arthritis History of cardioversion COPD (chronic obstructive pulmonary disease) Trigeminal neuralgia Fracture Osteopenia Osteoporosis Pancreatitis Atrial fibrillation Surgical History Hx of endoscopic retrograde cholangiopancreatography Hx of tonsillectomy Hx of vertebroplasty H/O colonoscopy History of cholecystectomy (~2003) Hx of right knee surgery (Unknown) Social History Household Members: None Housing: Condominium Are you a primary senior care specialist to a significant other at home: No Do you presently have visiting nurse or other home services: No Patient Tobacco Use Status: Former Tobacco user Tobacco use type: Cigarette Years Smoked: 5 Use of substances other than those prescribed or required for medical reasons: No Have you been hit, kicked, punched, or otherwise hurt by someone within the past year? If so, by whom?: No Do you feel safe in your current relationship?: No Is there a partner from a previous relationship who is making you feel unsafe now?: No Are you made to feel afraid or neglected: No Are you DNR?: No Advance Directives: No (brother is primary contact) Advance Directives Information Provided: Yes (brochure given) Advance Directives on File: No Do you have a plan to hurt others: No Plan Recently lost weight without trying: No Eating poorly because of decreased appetite: No Nutrition Risks: Surgical patient >75years Patient : No : No Poor oral hygiene: No Meds Allergies Allergy/AdvReac Type Severity Reaction Status Date / Time omeprazole [From PRILOSEC] Allergy Severe severe Verified 12/16/23 06:19 headache Active Medications: Current Medications Acetaminophen (Acetaminophen 325 Mg Tablet) 650 mg PO Q6H PRN PRN Reason: Pain, Mild (Pain Scale 1-3), fever or headache Amiodarone HCl (Amiodarone Hcl 200 Mg Tablet) 100 mg PO DAILY [facility] Last Admin: 12/16/23 12:02 Dose: Not Given Apixaban (Apixaban 5 Mg Tablet) 5 mg PO BID [facility] Atorvastatin Calcium (Atorvastatin Calcium 40 Mg Tablet) 40 mg PO DAILY [facility] Celecoxib (Celecoxib 200 Mg Capsule) 200 mg PO BID [facility] Diltiazem HCl (Diltiazem Hcl Cd 240 Mg Cap.Er.Deg) 240 mg PO DAILY [facility]; Protocol Last Admin: 12/16/23 12:02 Dose: Not Given Gabapentin (Gabapentin 100 Mg Capsule) 100 mg PO TID [facility] Last Admin: 12/16/23 13:56 Dose: 100 mg Hydromorphone HCl (Hydromorphone Hcl 0.5 Mg/0.5 Ml Syringe) 0.25 mg IVPUSH Q4H PRN; Protocol PRN Reason: Pain, Severe (Pain Scale 7-10) Hydromorphone HCl (Hydromorphone Hcl 0.5 Mg/0.5 Ml Syringe) 0.5 mg IVPUSH Q4H PRN; Protocol PRN Reason: Pain, Severe (Pain Scale 7-10) Lactated Ringer's (Lr) 1,000 mls @ 100 mls/hr IVCONT .Q10H [facility] Last Admin: 12/16/23 11:44 Dose: 100 mls/hr Cefazolin Sodium/Dextrose (Ancef) 2 gm in 50 mls @ 100 mls/hr IV Q8H [facility] Stop: 12/17/23 00:00 Last Infusion: 12/16/23 14:36 Dose: Infused Methocarbamol (Methocarbamol 500 Mg Tablet) 500 mg PO TID [facility] Last Admin: 12/16/23 13:56 Dose: 500 mg Metoprolol Tartrate (Metoprolol Tartrate 12.5 Mg Halftab) 12.5 mg PO BID [facility]; Protocol Oxycodone HCl (Oxycodone Hcl Immed Release 5 Mg Tablet) 5 mg PO Q4H PRN PRN Reason: Pain, Moderate(Pain Scale 4-6) Oxycodone HCl (Oxycodone Hcl Immed Release 5 Mg Tablet) 10 mg PO Q4H PRN PRN Reason: Pain, Moderate(Pain Scale 4-6) Last Admin: 12/16/23 13:55 Dose: 10 mg Senna (Sennosides 8.6 Mg Tablet) 17.2 mg PO BEDTIME [facility] Sodium Chloride (0.9 % Sodium Chloride Flush 3 Ml Syringe) 3 ml IVFLUSH QSHIFT [facility] Last Admin: 12/16/23 15:26 Dose: Not Given Vitamin D (Cholecalciferol (Vitamin D3) 10 Mcg Tablet) 10 mcg PO DAILY [facility] Last Admin: 12/16/23 12:02 Dose: Not Given Home Medications ?Medication ?Instructions ?Recorded ?Confirmed ?Last Taken ?Type alendronate 70 mg tablet (Fosamax) 70 mg PO QWEEK 03/23/20 12/16/23 12/15/23 History amiodarone 100 mg tablet 100 mg PO DAILY 03/23/20 12/16/23 12/16/23 History cholecalciferol (vitamin D3) 10 10 mcg PO DAILY PRN winter03/23/20 12/16/23 Unknown History mcg (400 unit) capsule mecobalamin (vitamin B12) 10,000 1,000 mcg IM QMONTH 03/23/20 12/16/23 12/02/23 History mcg solution for injection gabapentin 100 mg capsule 100 mg PO TID 10/09/23 12/12/23 12/16/23 History apixaban 5 mg tablet (Eliquis) 5 mg PO BID 12/10/23 12/12/23 12/13/23 History diltiazem HCl 240 mg 240 mg PO DAILY 12/10/23 12/16/23 12/16/23 History capsule,extended release 24 hr, controlled (DILT-XR) rosuvastatin 10 mg tablet 10 mg PO DAILY 12/10/23 12/16/23 Unknown History acetaminophen 500 mg tablet 1,000 mg PO Q6H PRN Pain 12/16/23 12/16/23 Unknown History albuterol sulfate 90 mcg/actuation 2 puff inhalation QID PRN dyspnea 12/16/23 12/16/23 Unknown History aerosol inhaler calcium carbonate 500 mg PO DAILY Heartburn 12/16/23 12/16/23 Unknown History furosemide 20 mg tablet 20 mg PO DAILY PRN edema 12/16/23 12/16/23 Unknown History lansoprazole 15 mg capsule,delayed 15 mg PO DAILY PRN Acid Reflux 12/16/23 12/16/23 Unknown History release metoprolol tartrate 25 mg tablet 12.5 mg PO BID 12/16/23 12/16/23 12/16/23 History Physical Exam Vital Signs and Narrative: Vital Signs: Last Vital Signs Temp 97.5 F 12/16/23 15:26 Pulse 66 12/16/23 15:26 Resp 17 12/16/23 15:26 BP 96/56 L 12/16/23 15:26 Pulse Ox 94 12/16/23 15:26 O2 Del Method Room Air 12/16/23 15:26 O2 Flow Rate 2 12/16/23 11:48 BMI result Body Mass Index 23.5 General: AOx3, no acute distress Resp: CTA bilaterally CVS: S1, S2, RRR GI: +BS, NT, no distention Skin: Warm, dry Neuro: Cranial nerves II-XII grossly intact bilaterally. Motor grossly intact bilaterally Extremities: No edema. Right knee wrapped in clean dressing. Psych: Appropriate affect Assessment and Plan (1) Right knee pain: Status: Acute Plan Patient is an 88-year-old female with a PMH significant for paroxysmal AFib on Eliquis, HLD, asthma, trigeminal neuralgia, osteoarthritis, venous insufficiency, pernicious anemia, and GERD who was admitted to the [facility] orthopedics for elective right TKA due to end-stage degenerative joint disease. POD 0. Medical consult for routine medical management. Right TKA POD 0 Plan as per Orthopedics Hypotension Patient's BP has been soft during admission, as low as 90/48 Patient receiving maintenance fluids Will hold metoprolol, resume as indicated Monitor BP closely Paroxysmal AFib Hx of cardioversions x2 Reports was last known to be in AFib 5 years ago Continue amiodarone and diltiazem Hold metoprolol due to soft BP Pernicious anemia Follow CBC Trigeminal neuralgia Continue gabapentin Venous insufficiency Uses Lasix p.r.n. for lower leg edema Hold Lasix due to soft BP HLD Continue statin GERD Continue PPI Thank you for allowing us to participate in the care of this patient. WIll continue to follow along with you for now. Attending: Dr. Betts
[2023-12-16] MEDS: HYDROmorphone HCl 0.5 MG/0.5 ML SYRINGE 0.25 MG IVPUSH (16:37)
[2023-12-16] MEDS: oxyCODONE HCl Immed Release 5 MG TABLET PO (18:04)
[2023-12-16] MEDS: Sennosides 8.6 MG TABLET 17.2 MG PO (20:53)
[2023-12-16] MEDS: HYDROmorphone HCl 0.5 MG/0.5 ML SYRINGE IVPUSH (23:07)
[2023-12-17 03:19] VITALS: BP 103/55; PULSE 65; RESP 17; TEMP 36; O2SAT 93
[2023-12-17] MEDS: HYDROmorphone HCl 0.5 MG/0.5 ML SYRINGE IVPUSH (06:17)
[2023-12-17] MEDS: Lactated Ringers 1,000 ML 100 ML IVCONT ×2 (06:22→08:15)
[2023-12-17 06:26] LABS: MANUAL DIFF FLAG NO
[2023-12-17 06:32] LABS: Basophils Percent Auto 0.1 % (0-2); Hematocrit 31.2 % (37.0-47.0); Hemoglobin 10.5 g/dl (12.0-16.0); Imm Gran Abs Auto 0.07 X10*3/uL (0.00-0.03); Imm Gran Pct Auto 0.7 % (0.0-0.4); Lymphocytes Absolute Auto 0.8 X10*3/uL (1.2-4.9); Lymphocytes Percent Auto 8.4 % (20-40); Mean Corpuscular HGB Conc 33.7 g/dl (31.0-35.0); Mean Corpuscular Hemoglobin 32.1 pg (27.0-33.0); Mean Corpuscular Volume 95.4 fL (80.0-98.0); Mean Platelet Volume 9.3 fL (9.4-12.3); Monocytes Absolute Auto 0.7 X10*3/uL (0.1-1.2); Monocytes Percent Auto 6.8 % (2-11); Neutrophils Absolute Auto 8.1 x10*3/uL (2.0-8.3); Platelet Count 181 X10*3/uL (160-400); Red Blood Count 3.27 X10*6/uL (4.20-5.50); Red Cell Distribution Width 12.7 % (11.0-16.0); White Blood Count 9.6 X10*3/uL (4.8-10.8)
[2023-12-17 07:05] LABS: Anion Gap 10 (12-20); Blood Urea Nitrogen 12 mg/dL (9-16); Calcium 9.2 mg/dL (8.4-10.2); Carbon Dioxide 26 mmol/L (22-29); Chloride 108 mmol/L (96-108); Creatinine Clr Calc Pharmacy 46.2; Estimated Glomerular Filt Rate > 60; Glucose Fasting 144 mg/dL (60-99); Potassium 4.7 mmol/L (3.3-5.1); Sodium 139 mmol/L (135-145)
[2023-12-17 07:25] VITALS: BP 103/55; BP 114/59; PULSE 65; PULSE 67; RESP 16; TEMP 36.4; O2SAT 93; O2SAT 98
[2023-12-17 08:05] VITALS: BP 103/55; PULSE 65
[2023-12-17] MEDS: Acetaminophen 325 MG TABLET 650 MG PO (08:05)
[2023-12-17] MEDS: dilTIAZem HCL CD 240 MG CAP.ER.DEG PO (08:05)
[2023-12-17] MEDS: methocarbamoL 500 MG TABLET PO ×2 (08:05→14:55)
[2023-12-17] MEDS: Apixaban 5 MG TABLET PO (08:06)
[2023-12-17] MEDS: Gabapentin 100 MG CAPSULE PO ×2 (08:06→14:55)
[2023-12-17] MEDS: Atorvastatin Calcium 40 MG TABLET PO (08:06)
[2023-12-17] MEDS: oxyCODONE HCl Immed Release 5 MG TABLET PO ×3 (08:06→16:20)
[2023-12-17] MEDS: Cholecalciferol (Vitamin D3) 10 MCG TABLET PO (08:06)
[2023-12-17] MEDS: Amiodarone HCL 200 MG TABLET 100 MG PO (08:06)
--- NOTE | 2023-12-17 08:21 | HO.POSTANES ---
Post Anesthesia Evaluation Post Anesthesia Evaluation Date of Service: 12/16/23 Vital Signs: Vital Signs Temp Pulse Resp BP Pulse Ox O2 Del Method 12/17/23 08:05 65 103/55 L 12/17/23 07:25 97.6 F 67 16 114/59 L 98 Room Air 12/17/23 07:25 65 103/55 L 93 12/17/23 03:19 96.8 F 65 17 103/55 L 93 Room Air Anesthesia: Spinal Mental Status: Awake Pain Control: Satisfactory Nausea/Vomiting: None Hydration: Adequate Anesthesia-Related Issues: No Anes. Related Issues
--- NOTE | 2023-12-17 08:49 | PM.PNORT ---
Subjective Subjective Date of Service: 12/17/23 Interval history: Patient is an 88-year-old female who is postop day 1 status post right total knee arthroplasty with Dr. Marks, DOS 12/16/2023. The patient reports that she experienced significant pain, in addition to muscle cramping, in her right leg overnight, but she recently received Dilaudid this a.m. and feels better. Patient previously seen by Dr. Marks earlier this morning, and they both agreed that placement in short-term rehab is the best thing for her given her living situation and medical comorbidities. Patient also states that she was evaluated by Physical therapy yesterday. Physical Exam Vital Signs: Vital Signs: Last Vital Signs Temp 97.6 F 12/17/23 07:25 Pulse 65 12/17/23 08:05 Resp 16 12/17/23 07:25 BP 103/55 L 12/17/23 08:05 Pulse Ox 93 12/17/23 07:25 O2 Del Method Room Air 12/17/23 07:25 O2 Flow Rate 2 12/16/23 11:48 BMI result Body Mass Index 23.5 Extrem: Other: Aquacel dressing in place Hugo wrap and gauze removed at this time No erythema, ecchymosis, evidence of infection noted NVI. Procedures Date of Service Date of Service: 12/17/23 Progress Note: A&P Assessment and plan (1) Arthritis of right knee: Status: Acute Plan 1. Patient is status post right total knee arthroplasty with Dr. Marks DOS 12/16/2023 Patient is doing well postoperatively Patient is educated about the postoperative course Patient requires continued hospitalization for pain management, as well as monitoring of atrial fibrillation, trigeminal neuralgia, chronic obstructive pulmonary disease, osteoporosis with subsequent vertebroplasty, hypercholesterolemia and pernicious anemia. Patient would also benefit tremendously from inpatient rehab placement after discharge from hospital, given her comorbidities as well as living on the 2nd floor with a 3rd floor bedroom. Time Spent With Patient Time: Total time managing care of this patient today ____ minutes. Quality Stroke Does the patient have a stroke diagnosis?: No VTE Prior VTE?: No VTE Risk Level:: Surgical - very high VTE Device Contraindication: N/A - Device Ordered VTE Drug Contraindication: N/A - Med Ordered
--- NOTE | 2023-12-17 09:09 | MHC.CM.PN ---
IMM 12/17/23, EMR REVIEWED, PT W/R TKA, P.T. RECOMMENDING STR AND PT PREFERS [facility], ORTHO NURSE JARED HAS PLACED INITIAL REFERRAL, UPDATES SENT. PT INDEP W/ALL CARE, HAS A WHEELED WALKER AND GRAB BARS IN BR, NO HOME SERVICES. PCP ON FILE VERIFIED, PT EDUCATED ON AND COMPLETES A HCP NAMING HER BROTHER JOE CARREON [phone] HER [facility] AND HER DUSTY ROXY CARREON [phone], COPY UPLOADED TO [facility] AND PLACED IN PAPER CHART.
[2023-12-17 13:20] VITALS: BP 103/55; PULSE 65
--- NOTE | 2023-12-17 15:14 | PC.NURSE ---
Nursing report called to Michelle Winter at [phone] to [facility] . Pt expected to be transported via BLS ETA 1730 .Pt accepting of discharge
--- NOTE | 2023-12-17 15:17 | MHC.CM.PN ---
PT TO BE MEDICALLY CLEARED FOR DC TO STR AT [facility], PER LIAISON THEY HAVE OBTAINED [facility] FOR TRANSPORT AT 5:30PM.
--- NOTE | 2023-12-17 15:22 | P.DS_ITS ---
DS: Providers Provider Date of Service: 12/17/23 Date of admission: 12/16/23 06:11 Primary care physician: Joseph Wagner MD Consults: 12/16/23 11:28 Consult to Hospitalist Routine Comment: Consulting Provider: Hospitalist Reason For Exam: ROUTINE MEDICAL MANAGEMENT DS: Diagnosis Discharge Diagnosis (1) Arthritis of right knee: Status: Acute DS: Summary Hospital Course Hospital Course: The patient underwent a successful total knee arthroplasty on 12/16/23, was transferred to PACU and then to the floor to recover. During their stay, their vitals were stable, afebrile at 97.6. Labs were unremarkable, H/H 10.5/31.2. POD 1 she was restarted on home Eliquis 5 mg p.o. b.i.d. for DVT ppx, they also received Physical Therapy services twice a day. Physical therapy should include gait training, ROM to tolerance and quad strength. She is WBAT. Prior to discharge, his dressing was changed, incision clean dry and intact, new Aquacel dressing applied. The Aquacel dressing should remain intact and dry at all times. Any concerns with the dressing, please contact orthopedic office. No showering. The plan is to be discharged Patient will follow-up in 2 weeks in Orthopedic office for staple removal incision check and reassessment Time Attestation Discharge Coordination Time (in mins): Thirty Quality: Safe Use of Opioids Does Pt have an Active Cancer Diagnosis on the Problem List?: No Quality: Stroke Does the patient have a stroke diagnosis?: No Physical Exam Vital Signs: Vital Signs: Last Vital Signs Temp 97.6 F 12/17/23 07:25 Pulse 65 12/17/23 13:20 Resp 16 12/17/23 07:25 BP 103/55 L 12/17/23 13:20 Pulse Ox 93 12/17/23 07:25 O2 Del Method Room Air 12/17/23 07:25 O2 Flow Rate 2 12/16/23 11:48 BMI result Body Mass Index 23.5 DS: Data Data Completed and Pending Pending studies at discharge: Pending at discharge 12/16/23 09:44 Surgical [PTH] Routine Labs on day of discharge: Laboratory Results - last 24 hr 12/17/23 05:52 WBC 9.6 RBC 3.27 L Hgb 10.5 L Hct 31.2 L MCV 95.4 MCH 32.1 MCHC 33.7 RDW 12.7 Plt Count 181 MPV 9.3 L Immature Gran % (Auto) 0.7 H Neut % (Auto) 84.0 H Lymph % (Auto) 8.4 L [place] % (Auto) 6.8 Eos % (Auto) 0.0 Baso % (Auto) 0.1 Lymph # (Auto) 0.8 L [place] # (Auto) 0.7 Eos # (Auto) 0.0 Baso # (Auto) 0.0 Abs Immat Gran (auto) 0.07 H Absolute Neuts (auto) 8.1 Absolute Nucleated RBC 0.000 Nucleated RBC % (auto) 0.0 Sodium 139 Potassium 4.7 Chloride 108 Carbon Dioxide 26 Anion Gap 10 L BUN 12 Creatinine 0.77 Estim Creat Clear Calc 46.2 Estimated GFR > 60 Fasting Glucose 144 H Calcium 9.2 Discharge Plan Discharge Anticipated Discharge Date/Time: 12/17/23 17:00 Patient Disposition: Xfer SNF Discharge Diagnosis: S/P R TKA Referrals: Bradly Joseph [facility] [Outside] - 1 Day (SHORT TERM REHAB) Natalie Johnson PA-C [Physician Engineering Professor] - 2 Weeks (01/02/24 12:30 [facility] Natalie Johnson PA-C) Discharge Medications: New methocarbamol 500 mg Tablet 500 mg PO TID 7 Days Qty: 21 0RF sennosides [Senna Lax] 8.6 mg Tablet 17.2 mg PO BEDTIME 30 Days Qty: 60 0RF oxycodone 5 mg Tablet 5 mg PO Q4H PRN (Reason: Pain, Moderate(Pain Scale 4-6)) 7 Days Qty: 42 0RF Rx Instructions: Partial Fill upon patient request. acetaminophen 325 mg Tablet 650 mg PO Q6H PRN (Reason: Pain, Mild (Pain Scale 1-3), fever or headache) 30 Days Qty: 240 0RF Continued (JULIO) dina Bauer See Rx Instructions .ROUTE .MEDSUPPLY Qty: 1 0RF Rx Instructions: Niyah arroyo diltiazem HCl [DILT-XR] 240 mg capsule,ext.rel 24h degradable 240 mg PO DAILY rosuvastatin 10 mg tablet 10 mg PO DAILY Eliquis 5 mg tablet 5 mg PO BID lansoprazole 15 mg Capsule,Delayed Release(Dr/Ec) 15 mg PO DAILY PRN (Reason: Acid Reflux) calcium carbonate 500 mg calcium (1,250 mg) Tablet,Chewable 500 mg PO DAILY furosemide 20 mg tablet 20 mg PO DAILY PRN (Reason: edema) albuterol sulfate 90 mcg/actuation HFA aerosol inhaler 2 puff INHALATION QID PRN (Reason: dyspnea) metoprolol tartrate 25 mg tablet 12.5 mg PO BID amiodarone 100 mg tablet 100 mg PO DAILY alendronate [Fosamax] 70 mg tablet 70 mg PO QWEEK Rx Instructions: takes on Sundays mecobalamin (vitamin B12) 10,000 mcg recon soln 1,000 mcg IM QMONTH cholecalciferol (vitamin D3) 10 mcg (400 unit) capsule 10 mcg PO DAILY PRN (Reason: winter season) gabapentin 100 mg capsule 100 mg PO TID Discontinued acetaminophen 500 mg Tablet 1,000 mg PO Q6H PRN (Reason: Pain) Discharge Orders: Discharge Order (Routine); Ordered 12/17/23 Ordered By: Ramiro Pedroza Diet: Advance to usual diet Activity on Discharge: Use cane or walker Stand Alone Forms: Patient Portal Discharge page Print Language: Prydeinig Care Plan Goals: Restore normal function of R knee Health Concerns: atrial fibrillation, trigeminal neuralgia, chronic obstructive pulmonary disease, osteoporosis with subsequent vertebroplasty, hypercholesterolemia and pernicious anemia. Plan of Treatment: Physical Therapy for Total knee arthroplasty: WBAT, gait training, ROM 0-12, quad strength ? Limit stair climbing ? No showering, no tub bath-keep dressing clean, dry and intact ? No driving x6 weeks ? Continue Eliquis 5 mg BID ? Follow up with [facility] in 2 weeks: Assessment: Stable for discharge
[2023-12-17 15:51] VITALS: BP 105/55; PULSE 62; RESP 18; TEMP 36.6; O2SAT 94
== END 2023-12-17 18:32 | disposition skilled nursing facility (03) | DRG 470 ==
LOC: HO.SSSA 06:13 → HO.S3 10:40
PROVIDERS: Orthopaedic Surgery; Admitting Provider Physician Assistant; PCP Internal Medicine; Visit Provider Physician Assistant
PROC: 0SRC0J9 Replacement of Right Knee Joint with Synthetic Substitute, Cemented, Open Approach (ICD-10-PCS; CPT 27447; principal; 2023-12-16 07:30)
DX: M17.11 Unilateral primary osteoarthritis, right knee (principal); J44.9 Chronic obstructive pulmonary disease, unspecified; I95.9 Hypotension, unspecified; G50.0 Trigeminal neuralgia; I87.2 Venous insufficiency (chronic) (peripheral); D51.0 Vitamin B12 deficiency anemia due to intrinsic factor deficiency; I48.0 Paroxysmal atrial fibrillation; Z87.891 Personal history of nicotine dependence; Z79.01 Long term (current) use of anticoagulants; Z79.899 Other long term (current) drug therapy
CPT/HCPCS: 36415; 80048; 85025; 86850; 86900; 86901; 87640; 87641; 88305; 88311; 97110; 97116; 97162; C1776; J0131; J0171; J0665; J0690; J1100; J1170; J2250; J2405; J2704; J2795; J3010; J3370; J7120

== ENCOUNTER → 2023-12-16 06:11 | Outpatient (BNV) | payer MEDICARE, SELFPAY | PROVIDERS: Admitting Provider Physician Assistant; PCP Internal Medicine; Visit Provider Orthopaedic Surgery | DX: M17.11 Unilateral primary osteoarthritis, right knee (principal); Z47.1 Aftercare following joint replacement surgery; Z96.651 Presence of right artificial knee joint | CPT/HCPCS: 27447; 99024 ==

== ENCOUNTER → 2023-12-16 06:11 | Outpatient (BNV) | payer MEDICARE, SELFPAY | PROVIDERS: Admitting Provider Physician Assistant; PCP Internal Medicine; Visit Provider Student in an Organized Health Care Education/Training Program | DX: M25.561 Pain in right knee (principal) | CPT/HCPCS: 99222 ==

== ENCOUNTER 2024-01-02 12:24 | Outpatient (AMB) | payer MEDICARE, SELFPAY ==
--- NOTE | 2024-01-02 12:45 | MHC.OFFVIS ---
Intake Visit Reasons: 2WK PO: R TKA yamilet/ 12/16/23 Intake Note: Mignon is a 88 year old female who presents today for a post op appointment s/p R TKA yamilet/ 12/16/23. Patient reports she is still having pain in her knee around the incision site. Allergies omeprazole [From PRILOSEC] Allergy (Severe, Verified 01/02/24 12:51) severe headache HPI HPI 2WK PO: R TKA yamilet/ 12/16/23: Details: 88-year-old female who presents in the office today 17 days status post right total knee arthroplasty, which was performed on 12/16/[address] Marks. ? ? While in the office today, the patient reports she is having pain around the incision site. ? PFSH Medical History Pernicious anemia Skin cancer Arthritis History of cardioversion COPD (chronic obstructive pulmonary disease) Trigeminal neuralgia Fracture Osteopenia Osteoporosis Pancreatitis Atrial fibrillation Surgical History Hx of endoscopic retrograde cholangiopancreatography Hx of tonsillectomy Hx of vertebroplasty H/O colonoscopy History of cholecystectomy (~2003) Hx of right knee surgery (Unknown) Social History Household Members: None Housing: Condominium Are you a primary career development specialist to a significant other at home: No Do you presently have visiting nurse or other home services: No Patient Tobacco Use Status: Former Tobacco user Tobacco use type: Cigarette Years Smoked: 5 service: No Review of Systems Const All systems reviewed & are unremarkable except as noted in HPI and below Physical Exam Const General: cooperative, healthy appearing and no acute distress Resp Effort & Inspection: normal respiratory effort and able to speak in complete sentences Cardio Rate: regular rate Peripheral pulses: Peripheral pulses 2+ throughout GI Palpation (GI): Soft to palpation Skin Lesions: no lesions Rashes: no rashes Extrem Other: Right knee: Normal to inspection. Incision site is clean, dry, and intact. [place] are intact. No surrounding erythema or drainage. No signs of infection. ROM is 0-90 degrees. ? Assessment & Plan Assessment & Plan (1) Status post total knee replacement: Comment: Right; 12/16/23 Dr. Marks Code(s): Z96.659 - Presence of unspecified artificial knee joint Category: Surgical Plan Ms. Mcgrath is a 88-year-old female who presents in the office today 17 days status post right total knee arthroplasty, which was performed on 12/16/[address] Marks. ? While in the office today, the patient reports she is having pain around the incision site.? ? [place] were removed and steri-stripes were applied. The patient reports having a UTI after surgery, which was treated by her PCP, who placed her on antibiotics. Physical therapy is scheduled to come to the patient's home. ? ? I sent a prescription for an antibiotic prophylactically for possible dental work in the future. However, the patient was educated they should not have any major dental work for the first 3 months post op after a right total knee arthroplasty.? ? Follow-up will be in four weeks with Dr. Marks, or sooner if needed.?? ? X-rays of the right knee which were obtained while in the office today and were reviewed by me, Natalie Johnson PA-C, revealed intact orthopedic hardware with proper alignment. ? Orders: Orders XR knee RT 3V Today M25.569 - Pain in unspecified knee Medications: New amoxicillin 2,000 mg (4 x 500 mg) PO ONCE 4 tabs 0RF take 4 tabs by mouth 1 hour prior to dental ppx 1 day Patient Instructions: Scribed by Michelle Lee medical collections representative, for Natalie Johnson PA-C on 01/02/2024 at 12:29 pm, EST.? Coding Level of Care Code Global (01962) Diagnoses Status post total knee replacement Z96.659
== END 2024-01-02 13:23 | disposition home or self-care (01) ==
PROVIDERS: PCP Internal Medicine; Visit Provider Physician Assistant
DX: Z96.659 Presence of unspecified artificial knee joint (principal)
CPT/HCPCS: 99024

== ENCOUNTER 2024-01-02 14:19 | Outpatient (REF) | payer MEDICARE, SELFPAY ==
--- NOTE | ~2024-01-02 | XR_ITS ---
EXAMINATION: XR KNEE, RIGHT CLINICAL INFORMATION: Pain in unspecified knee. COMPARISON: 07/09/2023. TECHNIQUE: AP standing view of bilateral knees and 2 views of the right knee. FINDINGS: AP standing view of the left knee demonstrates [id number]-[id number] medial compartment space loss with marginal osteophytes as well as moderate lateral compartment space loss with chondrocalcinosis. Right knee: Status post right knee total arthroplasty with expected postoperative changes including mono, joint effusion, mono and lucency suggestive of air. Hardware appears intact. Bones are diffusely demineralized. XR/XR knee RT 3V IMPRESSION: 1. Status post right knee total arthroplasty with expected postoperative changes. 2. Wyjmtxxq-tw-kruwcm degenerative changes left knee.
== END 2024-01-02 14:20 | disposition home or self-care (01) ==
LOC: HO.HOSX 14:19
PROVIDERS: Visit Provider Physician Assistant
DX: Z47.1 Aftercare following joint replacement surgery (principal); Z96.651 Presence of right artificial knee joint
CPT/HCPCS: 73562; 99212

== ENCOUNTER 2024-01-23 09:12 | Outpatient (AMB) | payer MEDICARE, SELFPAY ==
--- NOTE | 2024-01-23 09:22 | A.OFFVIS_ITS ---
Vital Signs 01/23/24 09:27 Height 5 ft 5 in Weight 140 lb BMI 23.3 Intake Visit Reasons: 6WK PO: R TKA w/ 12/16/23 Intake Note: Mignon is a 88 year old female who presents to the office today for a 6 week post operative visit S/P Right TKA w/DR 12/16/23. Reports mild intermittent discomfort in her right knee. She denies any fevers or chills. She continues with her home physical therapy. She does walk with a cane when she is out of her home. Allergies omeprazole [From PRILOSEC] Allergy (Severe, Verified 01/23/24 09:26) severe headache Medication List - Last Reconciled 01/23/24 by Kyrie Marks MD acetaminophen 650 mg (2 x 325 mg) PO Q6H PRN 30 days albuterol sulfate 90 mcg/actuation 2 puffs inhalation QID PRN alendronate (Fosamax) 70 mg PO QWEEK amiodarone 100 mg PO DAILY amoxicillin 2,000 mg (4 x 500 mg) PO ONCE 1 day apixaban (Eliquis) 5 mg PO BID calcium carbonate 500 mg PO DAILY cholecalciferol (vitamin D3) 10 mcg PO DAILY PRN diltiazem HCl ER (DILT-XR) 240 mg PO DAILY furosemide 20 mg PO DAILY PRN gabapentin 100 mg PO TID lansoprazole 15 mg PO DAILY PRN mecobalamin (vitamin B12) 1,000 mcg IM QMONTH methocarbamol 500 mg PO TID 7 days metoprolol tartrate 12.5 mg PO BID rosuvastatin 10 mg PO DAILY sennosides (Senna Lax) 17.2 mg (2 x 8.6 mg) PO BEDTIME 30 days walker Folding front wheeled walker [facility] Medical History Pernicious anemia Skin cancer Arthritis History of cardioversion COPD (chronic obstructive pulmonary disease) Trigeminal neuralgia Fracture Osteopenia Osteoporosis Pancreatitis Atrial fibrillation Surgical History Hx of endoscopic retrograde cholangiopancreatography Hx of tonsillectomy Hx of vertebroplasty H/O colonoscopy History of cholecystectomy (~2003) Hx of right knee surgery (Unknown) Social History (Updated 01/23/24 @ 09:27 by MARGE Dougherty) Household Members: None Housing: Condominium Are you a primary family day care worker to a significant other at home: No Do you presently have visiting nurse or other home services: No Patient Tobacco Use Status: Former Tobacco user Tobacco use type: Cigarette Years Smoked: 5 service: No Current occupational status: retired Physical Exam Vital Signs: BMI result Body Mass Index 23.3 Extrem Other: Right knee examination shows that the surgical incision is well healed, no erythema, full active extension and flexion to 125 degrees, her patella tracks well Assessment & Plan Assessment & Plan (1) Right knee pain: Code(s): M25.561 - Pain in right knee Category: Medical Plan Ms. Mcgrath is doing very well after undergoing right total knee replacement surgery on 12/16/2023. She will continue with her physical therapy exercises. She does know to take antibiotics before any dental work. She will contact me prior to her follow-up appointment in 2 months should any questions or concerns arise. Feel free to call me at any time should questions regarding her orthopedic management arise. Coding Level of Care Code Global (05713) Diagnoses Right knee pain M25.561
[2024-01-23 09:27] VITALS: BMI 23.3
== END 2024-01-23 09:39 | disposition home or self-care (01) ==
PROVIDERS: PCP Internal Medicine; Visit Provider Orthopaedic Surgery
DX: M25.561 Pain in right knee (principal)
CPT/HCPCS: 99024

== ENCOUNTER → 2024-01-23 09:12 | Outpatient (BNVA) | payer MEDICARE, SELFPAY | PROVIDERS: PCP Internal Medicine; Visit Provider Orthopaedic Surgery | DX: M25.561 Pain in right knee (principal) | CPT/HCPCS: 99212 ==

== ENCOUNTER 2024-03-17 11:35 | Outpatient (AMB) | payer MEDICARE, SELFPAY ==
[2024-03-17 11:37] VITALS: BMI 23.3
--- NOTE | 2024-03-17 11:37 | A.OFFVIS_ITS ---
Vital Signs 03/17/24 11:37 Height 5 ft 5 in Weight 140 lb BMI 23.3 Intake Visit Reasons: PO - R TKA w/DR 12/16/23 Intake Note: Mignon is a 88 year old female who presents with complaints of mild intermittent discomfort in her right knee after undergoing right total knee replacement surgery on 12/16/2023. She continues with her home exercise program. She denies any fevers or chills. She does not take any medicines for discomfort. She continues to walk with a cane when she is out of her home. Allergies omeprazole [From PRILOSEC] Allergy (Severe, Verified 03/17/24 11:44) severe headache Medication List - Last Reconciled 03/17/24 by Kyrie Marks MD acetaminophen 650 mg (2 x 325 mg) PO Q6H PRN 30 days albuterol sulfate 90 mcg/actuation 2 puffs inhalation QID PRN alendronate (Fosamax) 70 mg PO QWEEK amiodarone 100 mg PO DAILY amoxicillin 2,000 mg (4 x 500 mg) PO ONCE 1 day apixaban (Eliquis) 5 mg PO BID calcium carbonate 500 mg PO DAILY cholecalciferol (vitamin D3) 10 mcg PO DAILY PRN diltiazem HCl ER (DILT-XR) 240 mg PO DAILY furosemide 20 mg PO DAILY PRN gabapentin 100 mg PO TID lansoprazole 15 mg PO DAILY PRN mecobalamin (vitamin B12) 1,000 mcg IM QMONTH methocarbamol 500 mg PO TID 7 days metoprolol tartrate 12.5 mg PO BID rosuvastatin 10 mg PO DAILY sennosides (Senna Lax) 17.2 mg (2 x 8.6 mg) PO BEDTIME 30 days walker Folding front wheeled walker [facility] Medical History Pernicious anemia Skin cancer Arthritis History of cardioversion COPD (chronic obstructive pulmonary disease) Trigeminal neuralgia Fracture Osteopenia Osteoporosis Pancreatitis Atrial fibrillation Surgical History Hx of endoscopic retrograde cholangiopancreatography Hx of tonsillectomy Hx of vertebroplasty H/O colonoscopy History of cholecystectomy (~2003) Hx of right knee surgery (Unknown) Social History (Updated 01/23/24 @ 09:27 by MARGE Dougherty) Household Members: None Housing: Condominium Are you a primary animal daycare provider to a significant other at home: No Do you presently have visiting nurse or other home services: No Patient Tobacco Use Status: Former Tobacco user Tobacco use type: Cigarette Years Smoked: 5 service: No Current occupational status: retired Physical Exam Vital Signs: BMI result Body Mass Index 23.3 Const Other: Well-nourished well-developed very friendly female awake alert and oriented x3 in no acute distress Extrem Other: Bilateral lower extremity examination shows good capillary refill, no skin lesions noted, normal sensation light touch Right knee examination shows that the surgical incision is well healed, no erythema, full active extension and flexion to 120 degrees, her patella tracks well Assessment & Plan Assessment & Plan (1) Right knee pain: Code(s): M25.561 - Pain in right knee Category: Medical Plan Ms. Mcgrath continues to do well after undergoing right total knee replacement surgery on 12/16/2023. She will continue with her home exercise program. She does know to take antibiotics before any dental work. She will contact me prior to her follow-up appointment in 3 months should any questions or concerns arise. Feel free to call me at any time should questions regarding her orthopedic management arise. I spent 20 minutes in reviewing the patient's records and imaging studies, seeing the patient and documenting in the medical record. Coding Level of Care Code Est Pt Level 3 (86856) Complex EM visit Add On G2211 Diagnoses Right knee pain M25.561
== END 2024-03-17 12:03 | disposition home or self-care (01) ==
PROVIDERS: PCP Internal Medicine; Visit Provider Orthopaedic Surgery
DX: M25.561 Pain in right knee (principal); Z96.651 Presence of right artificial knee joint
CPT/HCPCS: 99212; G2211

== ENCOUNTER → 2024-03-17 11:35 | Outpatient (BNVA) | payer MEDICARE, SELFPAY | PROVIDERS: PCP Internal Medicine; Visit Provider Orthopaedic Surgery | DX: M25.561 Pain in right knee (principal); Z96.651 Presence of right artificial knee joint | CPT/HCPCS: 99212 ==

== ENCOUNTER 2024-06-17 11:02 | Outpatient (AMB) | payer MEDICARE, SELFPAY ==
[2024-06-17 11:18] VITALS: BMI 23.3
--- NOTE | 2024-06-17 11:18 | MHC.OFFVIS ---
Vital Signs 06/17/24 11:18 Height 5 ft 5 in Weight 140 lb BMI 23.3 Intake Visit Reasons: Low back pain Intake Note: Mignon is an 88 year old female who presents with complaints of progressively worsening low back pain which radiates into her right leg. The patient did undergo right total knee replacement surgery on 12/16/2023. She reports minimal discomfort in her right knee. The patient states that her low back pain has gotten worse over the last few years. She did undergo a vertebroplasty several years ago which gave her mild relief. She has had cortisone injections given into her low back. The most recent injection gave her minimal relief. The patient also reports intermittent weakness in her right leg. She has failed the last 6 weeks of conservative treatment which has included physical therapy exercises, Tylenol and anti-inflammatory medicines. The patient also reports ?numbness? which extends from her right thigh down her right leg. Allergies omeprazole [From PRILOSEC] Allergy (Severe, Verified 06/17/24 11:19) severe headache Medication List - Last Reconciled 06/17/24 by Kyrie Marks MD acetaminophen 650 mg (2 x 325 mg) PO Q6H PRN 30 days albuterol sulfate 90 mcg/actuation 2 puffs inhalation QID PRN amiodarone 100 mg PO DAILY amoxicillin 2,000 mg (4 x 500 mg) PO ONCE 1 day apixaban (Eliquis) 5 mg PO BID calcium carbonate 500 mg PO DAILY cholecalciferol (vitamin D3) 10 mcg PO DAILY PRN diltiazem HCl ER (DILT-XR) 240 mg PO DAILY furosemide 20 mg PO DAILY PRN gabapentin 100 mg PO TID mecobalamin (vitamin B12) 1,000 mcg IM QMONTH rosuvastatin 10 mg PO DAILY sennosides (Senna Lax) 17.2 mg (2 x 8.6 mg) PO BEDTIME 30 days teriparatide 20 mcg subcut DAILY walker Folding front wheeled walker [facility] Medical History Pernicious anemia Skin cancer Arthritis History of cardioversion COPD (chronic obstructive pulmonary disease) Trigeminal neuralgia Fracture Osteopenia Osteoporosis Pancreatitis Atrial fibrillation Surgical History Hx of endoscopic retrograde cholangiopancreatography Hx of tonsillectomy Hx of vertebroplasty H/O colonoscopy History of cholecystectomy (~2003) Hx of right knee surgery (Unknown) Social History (Updated 01/23/24 @ 09:27 by MARGE Dougherty) Household Members: None Housing: Condominium Are you a primary patient care manager to a significant other at home: No Do you presently have visiting nurse or other home services: No Patient Tobacco Use Status: Former Tobacco user Tobacco use type: Cigarette Years Smoked: 5 service: No Current occupational status: retired Physical Exam Vital Signs: BMI result Body Mass Index 23.3 Const Other: Well-nourished well-developed very friendly female awake alert and oriented x3 in no acute distress Back/Spine/Pelvis Other: Low back examination shows right-sided paraspinal muscle tenderness, pain with range of motion, positive straight leg raise test on the right at 70 degrees, 4/5 strength with testing of her right hip flexors and knee extensors when compared to 5/5 strength on her left side Extrem Other: Right knee examination shows that the surgical incision is well healed, no erythema, full active extension and flexion to 120 degrees, her patella tracks well Results Reviewed Results Reviewed: X-rays of the patient's right knee taken today show a total knee arthroplasty in good position with no signs of loosening, no acute bony abnormalities Assessment & Plan Assessment & Plan (1) Low back pain radiating to right leg: Code(s): M54.50 - Low back pain, unspecified; M79.604 - Pain in right leg Category: Medical Plan Ms. Mcgrath presents with progressively worsening low back pain which radiates down her right leg as well as associated right leg weakness most likely due to lumbar stenosis or a disc herniation. Thus, I will send the patient for an MRI of her lumbar spine for further evaluation. I will contact her by phone once the MRI results are available. She will call me prior to that time should her symptoms worsen in any way. Feel free to call me at any time should questions regarding her orthopedic management arise. I spent 22 minutes in reviewing the patient's records and imaging studies, seeing the patient and documenting in the medical record. Orders: Orders MR lumbar spine wo con Today M54.50 - Low back pain, unspecified, M79.604 - Pain in right leg XR knee RT 3V Today M25.561 - Pain in right knee Medications: Refilled amoxicillin 2,000 mg (4 x 500 mg) PO ONCE 20 tabs 3RF take 4 tabs by mouth 1 hour prior to dental work 1 day Coding Level of Care Code Est Pt Level 3 (67330) Complex EM visit Add On G2211 Diagnoses Low back pain radiating to right leg M54.50; M79.604
== END 2024-06-17 11:45 | disposition home or self-care (01) ==
PROVIDERS: PCP Internal Medicine; Visit Provider Orthopaedic Surgery
DX: M54.50 Low back pain, unspecified (principal); M79.604 Pain in right leg
CPT/HCPCS: 99213; G2211

== ENCOUNTER 2024-06-17 13:01 | Outpatient (REF) | payer MEDICARE, SELFPAY ==
--- NOTE | ~2024-06-17 | XR_ITS ---
EXAMINATION: XR KNEE 3 VIEWS RIGHT HISTORY: M25.561 - Pain in right knee COMPARISON: Comparison is made with the prior examination dated 124. FINDINGS: Three views of the right knee are submitted. The patient is again noted to be status post right total knee arthroplasty. The orthopedic elements are in anatomic alignment. There is no radiographic evidence of loosening. There is no fracture or dislocation. There is no joint effusion. The soft tissues are unremarkable. XR/XR knee RT 3V IMPRESSION: Status post right total knee arthroplasty. Electronically signed by: Ramiro Peacock MD 06/18/2024 02:15 PM EST
== END 2024-06-17 13:02 | disposition home or self-care (01) ==
LOC: HO.HOSX 13:01
PROVIDERS: Visit Provider Orthopaedic Surgery
DX: M25.561 Pain in right knee (principal); Z96.651 Presence of right artificial knee joint
CPT/HCPCS: 73562; 99212

== ENCOUNTER → 2024-07-01 08:56 | Outpatient (BNV) | payer MEDICARE, SELFPAY | PROVIDERS: PCP Internal Medicine; Visit Provider Radiology Diagnostic Radiology | DX: M47.815 Spondylosis without myelopathy or radiculopathy, thoracolumbar region (principal); M85.451 Solitary bone cyst, right pelvis; M41.86 Other forms of scoliosis, lumbar region | CPT/HCPCS: 72148 ==

== ENCOUNTER 2024-07-01 09:04 | Outpatient (REF) | payer MEDICARE, SELFPAY ==
--- NOTE | ~2024-07-01 | MR_ITS ---
EXAMINATION: MR LUMBAR SPINE WITHOUT CONTRAST CLINICAL INFORMATION: Low back pain COMPARISON: None available. TECHNIQUE: MRI of the lumbar spine was obtained using routine sequences without contrast. FINDINGS: Last rib-bearing vertebra labeled T12. Bone marrow STIR signal within the vertebral bodies of L2 and L1. Multilevel marginal osteophyte formation and disc desiccation and endplate irregularities from L1-2 to L5-S1. Multilevel Modic type II endplate changes from L1 to S1. Levoconvex rotoscoliosis apex at L2-3. Grade 1 anterolisthesis L5-S1. Superior endplate compression deformity representing 40% volume loss at L2. Inferior endplate compression deformity representing 30% volume loss at T11. The conus medullaris ends at pedicle of L1 with normal signal. T12-L1: Broad-based disc bulging. No compression upon neural elements. L1-2: Broad-based disc bulging. Facet joint and ligamentum flavum hypertrophy. No compression upon neural elements. L2-3: Broad-based disc bulging. Facet joint hypertrophy. Facet effusion, left-sided. Reduced AP diameter of the thecal sac. Bilateral neuroforamina narrowing more conspicuous on the right likely encroaching the exiting nerve roots. L3-4: Broad-based disc bulging. Facet joint hypertrophy as well as ligamentum flavum. Reduced AP diameter thecal sac. Bilateral neuroforamina stenosis right greater than left likely encroaching the exiting nerve roots. L4-5: Broad-based disc bulging. Facet joint hypertrophy. Reduced AP diameter of the thecal sac and bilateral neuroforamina stenosis left greater than the right likely encroaching the exiting nerve roots. L5-S1: Facet joint hypertrophy as well as ligamentum flavum. Broad-based disc bulging. Reduced AP diameter of the thecal sac. Bilateral neuroforamina stenosis compressing the L5 and S1 nerve roots. Fatty atrophy of the lower lumbar muscles. 4 cm cystic lesions in the right lower pelvis. No gross prevertebral compartment hematoma, mass or fluid collection. MR/MR lumbar spine wo con IMPRESSION: Multilevel thoracolumbar spondylosis and a levoconvex rotoscoliosis resulting in bilateral neuroforamina stenosis more conspicuous at L5-S1 and to a lesser extent L4-5 and L3-4 levels compressing the exiting nerve roots of L5 and S1 and encroaching the L3 and L4 exiting nerve roots. Grade 1 anterolisthesis L5-S1 on a degenerative basis. Cystic lesions, right lower pelvis. Electronically signed by: Marky Erickson MD 07/01/2024 10:59 AM [facility]
== END 2024-07-01 09:05 | disposition home or self-care (01) ==
LOC: HO.MRI 09:04
PROVIDERS: PCP Internal Medicine; Visit Provider Orthopaedic Surgery
DX: M54.50 Low back pain, unspecified (principal); M79.604 Pain in right leg
CPT/HCPCS: 72148

== ENCOUNTER 2024-07-07 12:51 | Outpatient (AMB) | payer MEDICARE, SELFPAY ==
[2024-07-07 13:01] VITALS: BMI 23.3
--- NOTE | 2024-07-07 13:01 | A.SPINEOV_ITS ---
Vital Signs 07/07/24 13:01 Height 5 ft 5 in Weight 140 lb BMI 23.3 Intake Visit Reasons: LBP & R leg pain Intake Note: Mr. Mcgrath is here today c/o low back pain that radiates down to the right leg. New Accounts Representative Required: No Allergies omeprazole [From PRILOSEC] Allergy (Severe, Verified 07/07/24 13:02) severe headache Physical Exam Vital Signs: BMI result Body Mass Index 23.3 Assessment & Plan Assessment & Plan (1) Low back pain radiating to right leg: Code(s): M54.50 - Low back pain, unspecified; M79.604 - Pain in right leg Category: Medical Plan Dear Dr. Marks, Thank you for referring Mignon to our office today. She is a pleasant 88-year-old female who comes in today with a chief complaint of right lateral leg pain. She reports that she began having pain in the lateral aspect of her mid thigh on the right side around May of 2024. She had a right total knee arthroplasty completed in December 2023. She feels that this helped fix the bulk of her right knee pain and the pain that she had near the anterior tibialis. Thankfully the pain that she describes now in her lateral right thigh is low- grade in nature (she reports it is about a 2-4/10). She denies any aggravating or alleviating factors for this pain, but instead states that it is relatively constant. She denies any known inciting incident for the pain. She states that it is very well localized the aforementioned thigh, and does not begin in her back then subsequently shoot down her leg. She reports that she has had sciatic pain in the past which he states is very different from the pain she is having now. She was able to successfully treat the sciatic pain that used to shoot down the posterior aspect of her entire right leg with cortisone injections completed at [facility]. She is currently taking gabapentin and Tylenol to help mitigate the pain, but is actually prescribed gabapentin for trigeminal neuralgia. PMH: history of AFib with the ablation therapy x2 currently on chronic blood thinners. History of worsening osteoporosis. history of osteoarthritis, trigeminal neuralgia, pernicious anemia, cholecystectomy, right total knee arthroplasty, T11 kyphoplasty. Social hx: The patient does not smoke, reports no substance use. Medications: See [employer] list. Allergies: Prilosec Physical exam: the patient has 5/5 strength in her upper and lower extremities. She ambulates well and rises from a seated position without difficulty. She does utilize a cane to assist with ambulation. She has a nonantalgic non spastic gait. She is sensational intact without any significant deficits on examination despite her disclosure of numbness over her right lateral thigh. Her reflexes are 2+ intact diffusely. (-) Bilateral straight leg raise, (-) Jarrett's, (-) clonus. Imaging review: MRI of the lumbar spine completed here at [facility] shows diffuse spondylosis of the lumbar spine with multilevel disc degeneration. there is a slight grade 1 spondylolisthesis at L5-S1 causing severe bilateral foraminal stenosis at this level, there is a large posterior disc bulge at L4-5 causing severe left-sided foraminal stenosis, there is again at this bulge at L3-4 causing severe right-sided foraminal stenosis, and there is moderate bilateral foraminal stenosis at L2-3. In addition to this there is a slight degenerative dextroscoliosis with the apex near L3. Impression: Mignon is a pleasant 88-year-old female who comes in today with a chief complaint of primarily right lateral thigh pain and numbness which has been present since around May with no inciting incident. She reports that she did have quite a bit of pain in her right lower extremity up until a right total knee replacement completed last year. She has been evaluated for her lumbar spine concerns in the past at [facility] who were able to mitigate her previous sciatic type pain with injections in her spine. At this time I believe that her numbness and well localized pain is likely coming from the foraminal stenosis seen on the right side in her lumbar spine. It is difficult to assess whether this is due to the stenosis seen at L5-S1 or the stenosis seen at L3-4 as a result of the disc bulge. I would like to send the patient back to our colleagues at [facility] for subsequent evaluation of her right thigh pain. I would recommend that they consider addressed in the right-sided L3-4 foraminal stenosis 1st if they decide to do injections, which she may or may not qualify for as she has fairly severe osteoporosis per her report. In the interim I will also send in a referral for physical therapy to be completed at [facility] while she waits for her appointment. To clarify: She is not currently interested in surgery nor do I think surgery would be particularly helpful for her given the significant degeneration and osteoporosis in the lumbar spine. I did discuss the possibility of doing something such as a foraminotomy to help alleviate her pain, but she is much more interested in pursuing conservative measures at this time. Thank you for allowing us to care for your patient. The total time spent with this visit with this patient was 45 minutes reviewing history, physical exam, MRI imaging review, and implementation of treatment plan or further diagnostic testing Ziggy Crowder MD,PhD [facility] Coding Level of Care Code New Pt Level 4 (31170) Diagnoses Low back pain radiating to right leg M54.50; M79.604
--- OUTSIDE RECORDS SUMMARY | 2024-07-07 13:14 | XMS_ITS | Encounter Summary ---
Author Organization [facility] Address [address] [place] [address] Care Team Providers Care Painter Airbrush Name Role Phone Joseph Wagner MD Primary Care Provider + [phone] Reason for Visit * Imaging (Routine) - Closed Specialty Diagnoses / Procedures Referred By Maggie ortega Referred To Contact Diagnoses Bilateral carotid artery stenosis Procedures Vascular US duplex carotid bilateral Shannan Benavidez NP [address] [place] [address] Dr Stone [address] [place] [id number] [facility] Referral ID Status Reason Start Date Expiration Date Visits Re quested Visits Authorized [id number] Closed 06/10/2024 06/10/2025 1 1 Encounter Details Date Type Department Care Team (Latest Contact Info) Description 06/19/2024 1:15 PM EST Ancillary Procedure [facility] [address] [facility] [address] [place] [phone] Bilateral carotid artery stenosis Social History Tobacco Use Types Packs/Day Years Used Date Smoking Tobacco: Never Smokeless Tobacco: Never Alcohol Use Standard Drinks/Week Comments Not Currently 0 (1 standard drink = 0.6 oz pur e alcohol) Sex and Gender Information Value Date Recorded Sex Assigned at Not on file Gender Identity Not on file Sexual Orientation Not on file Job Start Date Occupation Industry Not on file Not on file Not on file documented as of this encounter Progress Notes * Shannan Benavidez NP - 06/19/2024 1:15 PM EST Please let patient know that I reviewed the results of her carotid ultrasound. No significant progression of her carotid artery narrowing. Continue with her medications as prescribed. No concerning findings. documented in this encounter Plan of Treatment Upcoming Encounters Date Type Department Care Team (Late st Contact Info) Description 02/02/2025 11:00 AM EDT Appointment [facility] Pulmonary [address] [place] [address] documented as of this encounter Procedures Procedure Name Priority Date/Time Associated Diagnosis Comments VAS US DUPLEX CAROTID BILATERAL Routine 06/19/2024 1:24 PM EST Bilateral carotid artery stenosis documented in this encounter Results * Vascular US duplex carotid bilateral (06/19/2024 1:24 PM EST) Left CCA dist sys 65 cm/s CV VAS LAB Left CCA dist pineda 21 cm/s CV VAS LAB LEFT COMMON CAROTID ARTERY MID S 66 cm/s CV VAS LAB LEFT COMMON CAROTID ARTERY MID D 19 cm/s CV VAS LAB Left CCA prox sys 64 cm/s CV VAS LAB Left CCA prox pineda 18 cm/s CV VAS LAB Left ICA dist sys 71 cm/s CV VAS LAB Left ICA dist pineda 24 cm/s CV VAS LAB Left ICA mid sys 62 cm/s CV VAS LAB Left ICA mid pineda 21 cm/s CV VAS LAB Left ICA prox sys 49 cm/s CV VAS LAB Left ICA prox pineda 14 cm/s CV VAS LAB Left ECA sys 71 cm/s CV VAS LAB LEFT EXTERNAL CAROTID ARTERY D 16 cm/s CV VAS LAB Left Prox Subclavian PSV 106 cm/s CV VAS LAB Left vertebral sys 32 cm/s CV VAS LAB Right cca dist sys 53 cm/s CV VAS LAB Right CCA dist pineda 20 cm/s CV VAS LAB RIGHT COMMON CAROTID ARTERY MID S 62 cm/s CV VAS LAB RIGHT COMMON CAROTID ARTERY MID D 21 cm/s CV VAS LAB Right CCA prox sys 55 cm/s CV VAS LAB Right CCA prox pineda 13 cm/s CV VAS LAB Right ICA dist sys 75 cm/s CV VAS LAB Right ICA dist pineda 29 cm/s CV VAS LAB Right ICA mid sys 67 cm/s CV VAS LAB Right ICA mid pineda 23 cm/s CV VAS LAB Right ICA prox sys 50 cm/s CV VAS LAB Right ICA prox pineda 14 cm/s CV VAS LAB Right eca sys 55 cm/s CV VAS LAB RIGHT EXTERNAL CAROTID ARTERY D 9 cm/s CV VAS LAB Right Prox Subclavian PSV 102 cm/s CV VAS LAB Right vertebral sys 29 cm/s CV VAS LAB Anatomical Region Laterality Modality Vascular, Abdomen Ultrasound Narrative 06/21/2024 8:37 PM EST RIGHT. 1. There is minimal atherosclerotic plaque in the right carotid system as noted above. 2. There is a < 50% stenosis in the right internal carotid artery based on Doppler velocity. 3. The subclavian artery has normal Doppler flow velocity. 4. The vertebral artery has normal Doppler flow patterns with antegrade ?? flow. LEFT. 1. There is minimal atherosclerotic plaque in the left carotid system as noted above. 2. There is a < 50% stenosis in the left internal carotid artery based on Doppler velocity. 3. The subclavian artery has normal Doppler flow velocity. 4. The vertebral artery has normal Doppler flow patterns with antegrade ?? flow. Interpretation was done according to the [place] Symptomatic Carotid Endarterectomy Trial (NASCET) criteria ??and the Consensus Panel Grayscale and Doppler Ultrasound criteria for diagnosis of internal carotid artery stenosis. ??Please note that there are no clear criteria validated for the common carotid artery stenosis. Right Carotid The CCA has mild heterogeneous plaque. The ICA has mild heterogeneous plaque. The ECA has mild heterogeneous plaque. Vertebral flow is antegrade. Left Carotid The CCA has mild heterogeneous plaque. The ICA has mild heterogeneous plaque. The ECA has mild heterogeneous plaque. Vertebral flow is antegrade. Salesperson Jewelry Details A uriostegui scale, color and doppler analysis ultrasound was performed. During the study longitudinal and transverse views were obtained. Pulsed wave doppler was performed. Overall the study quality was adequate. Shannan Benavidez NP CV VASCULAR PROCEDUR ES documented in this encounter Visit Diagnoses Diagnosis Bilateral carotid artery stenosis Occlusion and stenosis of carotid artery without mention of cerebral infarction documented in this encounter Care Teams Painter Airbrush Relationship Specialty Start Date End Date Joseph Wagner MD [address] [place] [address] [phone] (work) PCP - General Internal Medicine 04/27/24 documented as of this encounter
--- OUTSIDE RECORDS SUMMARY | 2024-07-07 13:14 | XMS_ITS | Encounter Summary ---
Author Organization [facility] Address [address] [place] [address] Care Team Providers Care Mattress And Boxsprings Supervisor Name Role Phone Joseph Wagner MD Primary Care Provider + [phone] Reason for Visit * Reason Onset Date Comments Appointment 07/07/2024 PFT Encounter Details Date Type Department Care Team (Late st Contact Info) Description 07/07/2024 Telephone [facility] Cardiology [facility] [address] [place] [address] Dr [address] [place] [id number] Shannan Benavidez NP [address] [place] [address] [address] [place] [address] Appointment (PFT) Social History Tobacco Use Types Packs/Day Years [...] as of this encounter Progress Notes * Thu Webster - 07/07/2024 8:05 AM EST Pt is scheduled for a PFT on 02/02/25 at 11:00am, @ [facility] Pulmonology documented in this encounter Plan of Treatment Upcoming Encounters Date Type Department Care Team (Late st Contact Info) Description 02/02/2025 11:00 AM EDT Appointment [facility] Pulmonary [address] [place] [address] documented as of this encounter Visit Diagnoses Not on filedocumented in this encounter Care Teams Mattress And Boxsprings Supervisor Relationship Specialty Start Date End Date Joseph Wagner MD [address] [place] [id number] PCP - General Internal Medicine 04/27/24 documented as of this encounter
--- OUTSIDE RECORDS SUMMARY | 2024-07-07 13:15 | XMS_ITS | Encounter Summary ---
Author Organization [facility] Address [address] [place] [address] Care Team Providers Care It Technical Support Specialist Name Role Phone Joseph Wagner MD Primary Care Provider [phone] Reason for Referral * Imaging (Routine) - Closed Specialty Diagnoses / Procedures Referred By Contac t Referred To Contact Diagnoses Bilateral carotid artery stenosis Procedures Vascular US duplex carotid bilateral Shannan Benavidez NP [address] [place] [address] Dr Stone [address] [place] [id number] [facility] Referral ID Status Reason Start Date Expiration Date Visits Re quested Visits Authorized [id number] Closed 06/10/2024 06/10/2025 1 1 * Therapy (Routine) - Closed Specialty Diagnoses / Procedures Referred By Contac t Referred To Contact Pulmonology Diagnoses Atrial fibrillation, unspecified type ([facility]/HCC) Procedures Pulmonary function testing: Carbon Monoxide Diffusing Capacity, Nitrogen Wash Out, Spirometry with Bronchodilator Shannan Benavidez NP [address] [place] [address] Dr Stone [address] [place] [phone] [facility] Pul[facility] [address] [place] [address] Referral ID Status Reason Start Date Expiration Date Visits Re quested Visits Authorized [id number] Closed 06/10/2024 06/10/2025 1 1 Reason for Visit * Reason Comments Follow-up Encounter Details Date Type Department Care Team (Late st Contact Info) Description 06/10/2024 9:40 AM EST Office Visit [facility] [address] [place] [id number] Shannan Benavidez NP [address] [place] [address] Dr [address] [place] [address] Atrial fibrillation, unspecified type (CMS/HCC) (Primary Dx); Bilateral carotid artery stenosis; Primary hypertension; Hypercholesterolemia Social History Tobacco Use Types Packs/Day Years [...] on file documented as of this encounter Last Filed Vital Signs Vital Sign Reading Time Taken Comments Blood Pressure 126/62 06/10/2024 9:36 AM EST Pulse 69 06/10/2024 9:36 AM EST Temperature - - Respiratory Rate - - Oxygen Saturation 97% 06/10/2024 9:36 AM EST Inhaled Oxygen Concentration - - Weight 63 kg (139 lb) 06/10/2024 9:36 AM EST Height 165.1 cm (5' 5 ) 06/10/2024 9:36 AM EST Body Mass Index 23.13 06/10/2024 9:36 AM EST documented in this encounter Ordered Prescriptions Prescription Sig Dispensed Refills Start Date End Da te apixaban (Eliquis) 5 mg tablet Take 1 tablet (5 mg total) by mouth 2 (two) times a day. 180 each 1 06/10/2024 dilTIAZem XR (DILACOR XR) 240 mg 24 hr capsule Take 1 capsule (240 mg total) by mouth 1 (one) time each day. 90 capsule 1 06/10/2024 documented in this encounter Progress Notes * Shannan Benavidez NP - 06/10/2024 9:40 AM EST Images from the original note were not included. 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 Mu Padilla PCP: Joseph Wagner MD HPI: Mignon Mcgrath is a 88 y.o. old female with history of hypertension, hyperlipidemia and paroxysmal atrial fibrillation. She is on Eliquis for anticoagulation. She is on amiodarone for rhythm control. Patient also has history of carotid stenosis bilaterally. Patient's last echocardiogram completed 02/2024 showed a normal left ventricular wall thickness and systolic function with an LVEF of 55 to 60%. Mildly dilated atria. Aortic sclerosis without stenosis. Mild ascending aortic dilatation measuring 3.7 cm. Patient had pulmonary function testing completed 02/2023 which showed normal spirometry. Carotid duplex 06/2022 showed less than 50% stenosis in bilateral carotid arteries. Statin dose increased. I have obtained verbal consent from Mignon Mcgrath prior to the recording. I have advised Mignon Mcgrath that she may refuse the recording and require the recording to be turned off at any timeduring this encounter. History of Present Illness The patient is an 89-year-old female who presents today for a routine cardiac follow-up to monitor her history of hypertension, hyperlipidemia, paroxysmal atrial fibrillation, and carotid stenosis. She was recently seen by her primary care provider and found to have bradycardia, leading to the discontinuation of metoprolol. She remains on amiodarone 100 mg once a day and Eliquis 5 mg twice a day. She reports no current concerns, including chest pain, shortness of breath, lightheadedness, or dizziness. Her primary care physician discontinued metoprolol due to a diagnosis of first-degree heart block. She had been monitoring her heart rate, which consistently remained below 60. Since discontinuing metoprolol, she reports an improvement in her energy levels, particularly in the afternoon when she previously experienced fatigue. She has not experienced any exacerbation of leg swelling. Shecontinues to wear compression stockings for leg swelling and takes furosemide as needed, with the last dose taken in the summer. She reports no chest pain or shortness of breath. She maintains a healthy diet and has a good appetite. She requests a refill of diltiazem but does not require refills of amiodarone, rosuvastatin, or Eliquis. She reports an intermittent cough, which is not bothersome today. She has venous insufficiency. She has carotid stenosis. She has hyperlipidemia. Supplemental Information She started a new medication, Forteo, for osteoporosis. She underwent total knee replacement surgery and uses a cane for support. She experiences back pain due to standing straight after a long period of not doing so. She resides on the third floor and climbs 15 stairs between her bedroom and living room. FAMILY HISTORY She has two sisters who have dementia. MEDICATIONS Current: amiodarone, Eliquis, rosuvastatin, diltiazem, furosemide (as needed), Forteo Discontinued: metoprolol ACTIVE MEDICATIONS: Current Outpatient Medications Medication Instructions albuterol HFA (PROAIR HFA ; PROVENTIL HFA ; VENTOLIN HFA) 90 mcg/actuation inhaler Inhale into the lungs daily as needed. alendronate (FOSAMAX) 70 mg tablet Take 1 Tablet by mouth every 7 days. amiodarone (PACERONE) 100 mg, oral, Daily apixaban (Eliquis) 5 mg tablet Take 1 Tablet by mouth 2 Times Daily. cholecalciferol (VITAMIN D-3) 25 mcg (1,000 unit) tablet Take 1 Tablet by mouth as needed. cyanocobalamin, vitamin B-12, (VITAMIN B-12 INJ) Inject as directed every 30 days. dilTIAZem XR (DILACOR XR) 240 mg 24 hr capsule Take 1 Capsule by mouth daily. furosemide (LASIX) 20 mg tablet Take 1 Tablet by mouth daily as needed (edema). gabapentin (NEURONTIN) 100 mg capsule Take 1 Capsule by mouth 3 times daily. metoprolol tartrate (LOPRESSOR) 25 mg tablet Take 0.5 Tablets by mouth 2 times daily. rosuvastatin (CRESTOR) 10 mg tablet Take 1 Tablet by mouth daily. PAST MEDICAL HISTORY: Patient Active Problem List Diagnosis A-fib (CMS/[facility]) Cardiac murmur Carotid artery disease ([facility]) Hypercholesterolemia Hypertension ALLERGIES: Allergies Allergen Reactions Clonidine Omeprazole SOCIAL HISTORY: Social History Tobacco Use Smoking status: Never Smokeless tobacco: Never Substance Use Topics Alcohol use: Not Currently PHYSICAL EXAM: Vitals: 06/10/24 0936 Weight: 63 kg (139 lb) Height: 1.651 m (65 ) Physical Exam Constitutional: General: She is not in acute distress. Appearance: She is not diaphoretic. HENT: Head: Normocephalic. Eyes: Pupils: Pupils are equal, round, and reactive to light. Neck: Vascular: No carotid bruit. Cardiovascular: Rate and Rhythm: Normal rate and regular rhythm. Pulses: Normal pulses. Heart sounds: Murmur heard. Medium-pitched blowing systolic murmur is present with a grade of 2/6. No friction rub. Pulmonary: Effort: Pulmonary effort is normal. No respiratory distress. Breath sounds: Normal breath sounds. No stridor. No wheezing, rhonchi or rales. Chest: Chest wall: No tenderness. Abdominal: General: Bowel sounds are normal. There is no distension. Palpations: Abdomen is soft. Tenderness: There is no abdominal tenderness. Musculoskeletal: General: No deformity. Cervical back: Normal range of motion. Right lower leg: No edema. Left lower leg: No edema. Skin: General: Skin is warm and dry. Neurological: Mental Status: She is alert and oriented to person, place, and time. Psychiatric: Mood and Affect: Mood normal. EKG: No results found for this or any previous visit (from the past 4464 hour(s)). TESTING: Lab results reviewed from 11/2023 and 03/2024. Scanned into chart. ASSESSMENT/PLAN: As per AHA guidelines and previously established plan , we discussed the following today: Assessment & Plan 1. Hypertension. Her blood pressure is well-controlled at 126/62. She will continue her current medication regimen, including diltiazem, which also helps manage her atrial fibrillation. 2. Hyperlipidemia. Her LDL cholesterol level is optimal at 70. She will continue taking rosuvastatin 10 mg once daily and maintain her healthy diet. 3. Paroxysmal atrial fibrillation. Her EKG shows a normal sinus rhythm. She will continue her current regimen of amiodarone 100 mg once a day and Eliquis 5 mg b.i.d. to prevent atrial fibrillation episodes and reduce stroke risk. She will also continue taking diltiazem. A pulmonary function test will be scheduled for February 2025.She is advised to contact us immediately if she experiences any bleeding or excessive bruising. Amiodarone is intended for use only in patients with indicated life-threatening arrhythmias becauseits use is accompanied by substantial toxicity. We discussed the risks including risk for pulmonarytoxicity, hepatotoxicity, risk for worsening arrhythmias and risk for thyroid impairment. We will monitor the patient for these conditions throughout treatment. Patient was also warned about the riskfor photosensitivity and solar dermatitis. Patient was advised to wear sunscreen and wear protective clothing including a hat when in direct sunlight. 4. Carotid stenosis. An ultrasound of her carotid arteries will be ordered to monitor for any progression of the stenosis. She will continue taking rosuvastatin 10 mg once daily. 5. Venous insufficiency. She will continue wearing compression stockings and take furosemide as needed for leg swelling. 6. Health Maintenance. Labs will be repeated today to monitor her thyroid, liver, and kidney function due to her amiodarone use. She will see one of our cardiologists at her next visit. Follow-up The patient will follow up in 6 months. [facility] documented in this encounter Plan of Treatment Upcoming Encounters Date Type Department Care Team (Late st Contact Info) Description 02/02/2025 11:00 AM EDT Appointment [facility] [address] [place] [address] Scheduled Orders Name Type Priority Associated Diagnoses Orde r Schedule Pulmonary function testing: Carbon Monoxide Diffusing Capacity, Nitrogen Wash Out, Spirometry with Bronchodilator PFT Routine Atrial fibrillation, unspecified type (CMS/HCC) Expected: 02/01/2025, Expires: 06/10/2025 documented as of this encounter Procedures Procedure Name Priority Date/Time Associated Diagnosis Comments THYROID STIMULATING HORMONE WITH REFLEX FREE T4 Routine 06/10/2024 10:24 AM EST Atrial fibrillation, unspecified type (CMS/HCC) MAGNESIUM Routine 06/10/2024 10:24 AM EST Atrial fibrillation, unspecified type (CMS/HCC) COMPREHENSIVE METABOLIC PANEL Routine 06/10/2024 10:24 AM EST Atrial fibrillation, unspecified type (CMS/HCC) ECG 12-LEAD Routine 06/10/2024 9:49 AM EST Atrial fibrillation, unspecified type (CMS/HCC) documented in this encounter Results * Vascular [...] Interpretation was done according to the [place] Symptomatic Carotid Endarterectomy Trial (NASCET) criteria ??and [...] mild heterogeneous plaque. Vertebral flow is antegrade. Nib Assembler Details A uriostegui scale, color and doppler analysis ultrasound was performed. During the study longitudinal and transverse views were obtained. Pulsed wave doppler was performed. Overall the study quality was adequate. Shannan Benavidez NP CV VASCULAR PROCEDUR ES * Thyroid stimulating hormone with reflex free T4 (06/10/2024 10:24 AM EST) Thyroid Stimulating Hormone (TSH) 3.980 0.450 - 4.500 uIU/mL [facility] 1 Blood Venous blood specimen / Unknown 06/10/2024 10:24 AM EST 06/10/2024 Narrative [facility] 1 - 06/11/2024 4:06 AM EST Performed at: ??01 - [facility] [address] ??[id number] Visual Basic Developer: Radha Preston MD, Phone: ??[phone] Shannan Benavidez NP LAB BLOOD ORDERABLES [facility] 1 * Magnesium (06/10/2024 10:24 AM EST) Magnesium 1.9 1.6 - 2.3 mg/dL [facility] 1 Blood Venous blood specimen / Unknown 06/10/2024 10:24 AM EST 06/10/2024 Narrative [facility] 1 - 06/11/2024 7:06 AM EST Performed at: ??01 - [facility] [address] ??[id number] Visual Basic Developer: Radha Preston MD, Phone: ??[phone] Shannan Benavidez WORSHIP DIRECTOR LAB BLOOD ORDERABLES [facility] 1 * (ABNORMAL) Comprehensive metabolic panel (06/10/2024 10:24 AM EST) Glucose 87 70 - 99 mg/dL [facility] 1 Blood Urea Nitrogen (BUN) 18 8 - 27 mg/dL [facility] 1 Creatinine 0.90 0.57 - 1.00 mg/dL [facility] 1 eGFR 62 >59 mL/min/1. 73 [facility] 1 BUN/Creatinine Ratio 20 12 - 28 [facility] 1 Sodium 140 134 - 144 mmol/L [facility] 1 Potassium 4.1 3.5 - 5.2 mmol/L [facility] 1 Chloride 102 96 - 106 mmol/L [facility] 1 Carbon Dioxide 24 20 - 29 mmol/L [facility] 1 Calcium 10.4(H) 8.7 - 10.3 mg/dL [facility] 1 Comment:Verified by repeat analysis Protein Total 6.9 6.0 - 8.5 g/dL [facility] 1 Albumin 4.6 3.7 - 4.7 g/dL [facility] 1 Globulin Total 2.3 1.5 - 4.5 g/dL [facility] 1 Bilirubin Total 0.4 0.0 - 1.2 mg/dL [facility] 1 Alkaline Phosphatase 82 44 - 121 IU/L [facility] 1 Aspartate aminotransferase??(A ST) 20 0 - 40 IU/L [facility] 1 Alanine Aminotransferase (ALT) 15 0 - 32 IU/L [facility] 1 Blood Venous blood specimen / Unknown 06/10/2024 10:24 AM EST 06/10/2024 Narrative [facility] 1 - 06/11/2024 4:06 AM EST Performed at: ??01 - [facility] [address] ??[id number] Visual Basic Developer: Radha Preston MD, Phone: ??[phone] Shannan Garciatriston WORSHIP DIRECTOR LAB BLOOD ORDERABLES Performing Organization Address [facility] Co de Phone Number [facility] 1 * ECG 12 lead (06/10/2024 9:49 AM EST) Ventricular Rate ECG 67 BPM GEMUSE Atrial Rate 67 BPM GEMUSE P-R Interval 184 ms GEMUSE QRS Duration 84 ms GEMUSE Q-T Interval 400 ms GEMUSE QTc 422 ms GEMUSE P Wave Webster 83 degrees GEMUSE R Webster 54 degrees GEMUSE T Webster 25 degrees GEMUSE ECG Interpretation Normal sinus rhythm Normal ECG Confirmed by Adis SO JAMES ([id number]) on 06/10/2024 9:59:07 AM GEMUSE 06/10/2024 9:49 AM EST 06/10/2024 9:59 AM EST Shannan Pramod WORSHIP DIRECTOR ECG ORDERABLES Performing Organization Address [facility] de Phone Number [facility] documented in this encounter Visit Diagnoses Diagnosis Atrial fibrillation, unspecified type (CMS/HCC)- Primary Bilateral carotid artery stenosis Occlusion and stenosis of carotid artery without mention of cerebral infarction Primary hypertension Unspecified essential hypertension Hypercholesterolemia Pure hypercholesterolemia Bilateral carotid artery stenosis Occlusion and stenosis of carotid artery without mention of cerebral infarction documented in this encounter Discontinued Medications Medication Sig Discontinue Reason Start Date End Da te alendronate (FOSAMAX) 70 mg tablet Take 1 Tablet by mouth every 7 days. Discontinued by another clinician 06/10/2024 metoprolol tartrate (LOPRESSOR) 25 mg tablet Take 0.5 Tablets by mouth 2 times daily. Discontinued by another clinician 08/08/2023 06/10/2024 apixaban (Eliquis) 5 mg tablet Take 1 Tablet by mouth 2 Times Daily. Reorder 08/08/2023 06/10/2024 dilTIAZem XR (DILACOR XR) 240 mg 24 hr capsule Take 1 Capsule by mouth daily. Reorder 08/08/2023 06/10/2024 documented as of this encounter Care Teams It Technical Support Specialist Relationship Specialty Start Date End Date Joseph Wagner MD [address] [place] [address] PCP - General Internal Medicine 04/27/24 documented as of this encounter
--- OUTSIDE RECORDS SUMMARY | 2024-07-07 13:15 | XMS_ITS | Clinical Summary ---
Author Organization [facility] [employer] Address [address] [place] [address] Phone Care Team Providers Care Corporate Financial Analyst Name Role Phone Joseph Wagner MD Primary Care Provider + [phone] Allergies Active Allergy Reactions Criticality Noted Date Comments Clonidine 04/02/2024 Omeprazole 04/02/2024 Medications Medication Sig Dispensed Refills Start Date End Date Status albuterol HFA (PROAIR HFA ; PROVENTIL HFA ; VENTOLIN HFA) 90 mcg/actuation inhaler Inhale into the lungs daily as needed. 09/29/2017 Active cholecalciferol (VITAMIN D-3) 25 mcg (1,000 unit) tablet Take 2 tablets (2,000 Units total) by mouth 1 (one) time each day. Active cyanocobalamin, vitamin B-12, (VITAMIN B-12 INJ) Inject as directed every 30 days. Active furosemide (LASIX) 20 mg tablet Take 1 Tablet by mouth daily as needed (edema). 06/05/2023 Active gabapentin (NEURONTIN) 100 mg capsule Take 1 Capsule by mouth 3 times daily. Active rosuvastatin (CRESTOR) 10 mg tablet Take 1 Tablet by mouth daily. Active amiodarone (PACERONE) 100 mg tablet Take 1 tablet (100 mg total) by mouth 1 (one) time each day. 90 tablet 1 06/01/2024 Active dilTIAZem XR (DILACOR XR) 240 mg 24 hr capsule Take 1 capsule (240 mg total) by mouth 1 (one) time each day. 90 capsule 1 06/10/2024 Active apixaban (Eliquis) 5 mg tablet Take 1 tablet (5 mg total) by mouth 2 (two) times a day. 180 each 1 06/10/2024 Active alendronate (FOSAMAX) 70 mg tablet Take 1 Tablet by mouth every 7 days. 06/10/2024 Discontinued( Discontinued by another clinician) apixaban (Eliquis) 5 mg tablet Take 1 Tablet by mouth 2 Times Daily. 08/08/2023 06/10/2024 Discontinued( Reorder) dilTIAZem XR (DILACOR XR) 240 mg 24 hr capsule Take 1 Capsule by mouth daily. 08/08/2023 06/10/2024 Discontinued( Reorder) metoprolol tartrate (LOPRESSOR) 25 mg tablet Take 0.5 Tablets by mouth 2 times daily. 08/08/2023 06/10/2024 Discontinued( Discontinued by another clinician) Active Problems Problem Noted Date Diagnosed Date Cardiac murmur 08/08/2023 Overview (04/02/2024): Last Assessment & Plan: On physical examination patient has a 2 out of 6 systolic heart murmur. She denies any clinical symptoms of worsening heart failure and she denies any dyspnea, lightheadedness, dizziness, syncope or near syncope. We will update an echocardiogram 6 months prior to her next office visit. Carotid artery disease 01/09/2023 Overview (04/02/2024): Last Assessment & Plan: Recent carotid duplex showing 50% bilateral carotid stenosis. Patient continues on statin. A-fib 06/10/2020 Overview (04/02/2024): Last Assessment & Plan: History of paroxysmal atrial fibrillation on amiodarone for rhythm control. Last pulmonary function testing 02/2023 was normal. Last labs were in August which were normal. Her [id number] score 4 representing a 4.8% risk for thromboembolism. Amiodarone is intended for use only in patients with indicated life-threatening arrhythmias because its use is accompanied by substantial toxicity. We discussed the risks including risk for pulmonary toxicity, hepatotoxicity, risk for worsening arrhythmias and risk for thyroid impairment. We will monitor the patient for these conditions throughout treatment. Patient was also warned about the risk for photosensitivity and solar dermatitis. Patient was advised to wear sunscreen and wear protective clothing including a hat when in direct sunlight. Hypercholesterolemia 06/10/2020 Overview (04/02/2024): Last Assessment & Plan: Patient's last LDL cholesterol is 89. She will be updating lipids with her primary care provider in the coming weeks. She continues on a low-fat diet and rosuvastatin 10 mg once a day. Hypertension 06/10/2020 Overview (04/02/2024): Last Assessment & Plan: Patient's blood pressure today 110/68. This is under excellent control. Continue with metoprolol as prescribed. Encounters Date Type Department Care Team Description 07/07/[address] [facility] [address] [facility] [address] [place] [address] Shannan Benavidez NP Appointment (PFT) 06/19/2024 1:15 PM EST Ancillary Procedure [facility] [address] [place] [address] Bilateral carotid artery stenosis 06/10/2024 9:40 AM EST Office Visit [facility] [address] [place] [address] Shannan Benavidez NP Atrial fibrillation, unspecified type (CMS/HCC) (Primary Dx); Bilateral carotid artery stenosis; Primary hypertension; Hypercholesterolemia 06/01/[address] [facility] [address] [facility] [address] [place] [address] Shannan Benavidez NP Med Refill from Last 3 Months Social History Tobacco Use Types Packs/Day Years [...] file Not on file Not on file Obstetrics History Last Filed Vital Signs Vital Sign Reading [...] Mass Index 23.13 06/10/2024 9:36 AM EST Plan of Treatment Upcoming Encounters Date Type Department Care Team (Late st Contact Info) Description 02/02/2025 11:00 AM EDT Appointment [facility] Pulmonary [address] [place] [address] Health Maintenance Due Date Last Done Comments Pneumococcal Vaccine: 65+ Years (1 of 2 - PCV) 1941 DTaP,Tdap,and Td Vaccines (1 - Tdap) 11/03/1955 Zoster Vaccines (1 of 2) 1986 Cholesterol Screening (Lipid Panel) 05/12/2022 Depression Screening 05/12/2022 Falls Risk Assessment 05/12/2022 Medicare Annual Wellness Visit 05/12/2022 Social Influencers of Health Screening 05/12/2022 Hypertension/CHF/CAD Annual BMP Blood Test 06/10/2025 06/10/2024 Osteoporosis Screening (Bone Density Screening) 10/28/2033 10/29/2023, 10/29/2023, 10/27/2021, Additional history exists RSV Immunization Patients 60+ Years Old Completed 03/05/2023 COVID-19 Vaccine Completed 03/12/2024, , 05/20/2022, Additional history exists Influenza Vaccine Completed 03/12/2024, , 04/28/2022, Additional history exists HIB Vaccines Aged Out No longer eligi ble based on patient's age to complete this topic HPV Vaccines Aged Out No longer eligi ble based on patient's age to complete this topic Hepatitis A Vaccines Aged Out No long er eligible based on patient's age to complete this topic Hepatitis B Vaccines Aged Out No long er eligible based on patient's age to complete this topic IPV Vaccines Aged Out No longer eligi ble based on patient's age to complete this topic MMR Vaccines Aged Out No longer eligi ble based on patient's age to complete this topic Meningococcal ACWY Vaccine Aged Out N o longer eligible based on patient's age to complete this topic RSV Immunization Patients Under 20 months Aged Out No longer eligible based on patient's age to complete this topic Varicella Vaccines Aged Out No longer eligible based on patient's age to complete this topic Procedures Procedure Name Priority Date/Time Associated Diagnosis Comments VAS US DUPLEX CAROTID BILATERAL Routine 06/19/2024 1:24 PM EST Bilateral carotid artery stenosis THYROID STIMULATING HORMONE WITH REFLEX FREE T4 Routine 06/10/2024 10:24 AM EST Atrial fibrillation, unspecified type (CMS/HCC) MAGNESIUM Routine 06/10/2024 10:24 AM EST Atrial fibrillation, unspecified type (CMS/HCC) COMPREHENSIVE METABOLIC PANEL Routine 06/10/2024 10:24 AM EST Atrial fibrillation, unspecified type (CMS/HCC) ECG 12-LEAD Routine 06/10/2024 9:49 AM EST Atrial fibrillation, unspecified type (CMS/HCC) IKE DEXA APPEND SKELETON Routine 10/29/2023 11:54 AM EDT Encounter for screening for osteoporosis from Last 3 Months or Most Recently Relevant to Health Maintenance Results * Vascular US duplex carotid bilateral [...] Interpretation was done according to the [place] Symptomatic Carotid Endarterectomy Trial (NASCET) criteria ??and [...] mild heterogeneous plaque. Vertebral flow is antegrade. Fluid Designer Details A uriostegui scale, color and doppler analysis ultrasound was performed. During the study longitudinal and transverse views were obtained. Pulsed wave doppler was performed. Overall the study quality was adequate. Shannan Garciaci RESPIRATORY CARE ASSISTANT CV VASCULAR PROCEDUR ES * Thyroid stimulating hormone with reflex free T4 (06/10/2024 10:24 AM EST) Thyroid Stimulating Hormone (TSH) 3.980 0.450 - 4.500 uIU/mL [facility] 1 Blood Venous blood specimen / Unknown 06/10/2024 10:24 AM EST 06/10/2024 Narrative [facility] 1 - 06/11/2024 4:06 AM EST Performed at: ??01 - [address] ??[id number] Yard Inspector: Radha Preston MD, Phone: ??[phone] Shannanse Petersonfabioci RESPIRATORY CARE ASSISTANT LAB BLOOD ORDERABLES Performing Organization Address [facility] de Phone Number [facility] 1 * Magnesium (06/10/2024 10:24 AM EST) Pathologist [facility] [place] Magnesium 1.9 1.6 - 2.3 mg/dL [facility] 1 Blood Venous blood specimen / Unknown 06/10/2024 10:24 AM EST 06/10/2024 Narrative [facility] 1 - 06/11/2024 7:06 AM EST Performed at: ??01 - [facility] [address] ??[id number] Yard Inspector: Radha Preston MD, Phone: ??[phone] Shannanse Villaltauctriston RESPIRATORY CARE ASSISTANT LAB BLOOD ORDERABLES Performing Organization Address [facility] de Phone Number [facility] 1 * (ABNORMAL) Comprehensive metabolic panel [...] 4:06 AM EST Performed at: ??01 - [facility] ??[id number] Yard Inspector: Radha Preston MD, Phone: ??[phone] Shannan Benavidez NP LAB BLOOD ORDERABLES [facility] 1 * ECG 12 lead (06/10/2024 9:49 AM EST) Pathologist [facility] Ventricular Rate ECG 67 BPM GEMUSE Atrial Rate 67 BPM GEMUSE P-R Interval 184 ms GEMUSE QRS Duration 84 ms GEMUSE Q-T Interval 400 ms GEMUSE QTc 422 ms GEMUSE P Wave [place] 83 degrees GEMUSE R [place] 54 degrees GEMUSE T [place] 25 degrees GEMUSE ECG Interpretation Normal sinus rhythm Normal ECG Confirmed by Adis CABA JAMES ([id number]) on 06/10/2024 9:59:07 AM GEMUSE 06/10/2024 9:49 AM EST 06/10/2024 9:59 AM EST Shannanse Petersonroverto RESPIRATORY CARE ASSISTANT ECG ORDERABLES RIP * IKE DEXA APPEND SKELETON (10/29/2023 11:54 AM EDT) Anatomical Region Laterality Modality Mammography 10/29/2023 11:1 9 AM EDT Narrative 10/29/2023 11:54 AM EDT [facility] Diagnostic Imaging Department [address] [place] [address] Patient: ??JAYANT CARREON ?/Age/Sex: 1935 - 87 - F Unit#: ??[id number] ? Location/Status: ??SPDIMAM/REG CLI ? Mnemonic/Ordering Site: ??[facility] Ordering Physician: ??GAVI BREAUX MD Ike Dexa Append Skeleton - 10/29/23 - 1146 Report Status:Signed HISTORY: ??The patient is an 87-year-old postmenopausal female with clinical concern for metabolic bone disease. FINDINGS: ??Dual energy x-ray absorptiometry of the left forearm is performed. The mean bone mineral density the distal one third of the left radius is 0.502 gm/cm2 which is 57% of that of young normals and 85% of that of age matched controls. This yields a T-score of -4.3 and a Z-score of -1.0 which is diagnostic of osteoporosis. IMPRESSION: Osteoporosis. Code 88499 Dictating Physician: ??AL GIL MD Electronically Signed by: ??AL GIL MD Dic Date/Time: ??10/29/23 1152 Sign date/Time: ??10/29/23 1154 Procedure Note Al Gil MD - 01/20/2024 [facility] Diagnostic Imaging Department [address] [place], [place] [id number] Patient: JAYANT CARREON David /Age/Sex: 1935 - 87 - F Unit#: [id number] Location/Status: [facility] Mnemonic/Ordering Site:[facility] Ordering Physician: GAVI BREAUX MD Ike Dexa Append Skeleton - 10/29/23 - 1146 Report Status:Signed HISTORY: The patient is an 87-year-old postmenopausal female withclinical concern for metabolic bone disease. FINDINGS: Dual energy x-ray absorptiometry of the left forearm isperformed. The mean bone mineral density the distal one third of the left radius is0.502 gm/cm2 which is 57% of that of young normals and 85% of that of agematched controls. This yields a T-score of -4.3 and a Z-score of -1.0 which is diagnostic of osteoporosis. IMPRESSION: Osteoporosis. Code 13194 Dictating Physician: AL GIL MD Electronically Signed by: AL GIL MD Dic Date/Time: 10/29/23 1152 Sign date/Time: 10/29/23 1154 Gavi Breaux MD IMG BI PROCEDURES from Last 3 Months or Most Recently Relevant to Health Maintenance Care Teams Corporate Financial Analyst Relationship Specialty Start Date End Date Joseph Wagner MD [address] [place] [address] PCP - General Internal Medicine 04/27/24
== END 2024-07-07 15:56 | disposition home or self-care (01) ==
PROVIDERS: PCP Internal Medicine; Referring Provider Orthopaedic Surgery; Visit Provider Physician Assistant
DX: M54.50 Low back pain, unspecified (principal); M79.604 Pain in right leg
CPT/HCPCS: 99204

== ENCOUNTER → 2024-07-07 12:51 | Outpatient (BNVA) | payer MEDICARE, SELFPAY | PROVIDERS: PCP Internal Medicine; Referring Provider Orthopaedic Surgery; Visit Provider Physician Assistant | DX: M54.50 Low back pain, unspecified (principal); M79.604 Pain in right leg | CPT/HCPCS: 99202 ==

== ENCOUNTER 2024-12-15 10:56 | Outpatient (REF) | payer MEDICARE, SELFPAY ==
--- NOTE | ~2024-12-15 | XR_ITS ---
EXAMINATION: XR KNEE, RIGHT CLINICAL INFORMATION: M25.561 - Pain in right knee COMPARISON: June 17, 2024 TECHNIQUE: Three views of the right knee. FINDINGS: There is no joint effusion. Total knee arthroplasty has been performed. There is no abnormal lucency at the interface of the hardware, methacrylate, or bone. There is anatomic alignment across the knee joint. Mild atherosclerotic calcifications are visible in the arteries. XR/XR knee RT 3V IMPRESSION: Stable right knee post total knee arthroplasty. Atherosclerotic disease. Electronically signed by: Vern Escobar MD 12/15/2024 11:46 AM EDT
--- OUTSIDE RECORDS SUMMARY | 2024-12-16 11:46 | XMS_ITS | Clinical Summary ---
Author Organization [facility] Address [address] [place] [address] Phone Care Team Providers Care Bilingual Loan Processor Name Role Phone Joseph Wagner MD Primary Care Provider + [phone] Allergies Active Allergy Reactions Criticality Noted Date [...] her next office visit. Carotid artery disease ([facility] V24) 01/09/2023 Overview (04/02/2024): Last Assessment & Plan: Recent carotid duplex showing 50% bilateral carotid stenosis. Patient continues on statin. A-fib ([facility] V24, [facility] V28) 06/10/2020 Overview (04/02/2024): Last Assessment & Plan: History of paroxysmal atrial fibrillation on amiodarone for rhythm control. Last pulmonary function testing 02/2023 was normal. Last labs were in August which were normal. Her [id number] score 4 representing a 4.8% risk for [...] [facility] [address] [place] [address] 02/10/2025 1:00 PM EDT Office Visit [facility] Cardiology [address] [place] [id number] Salvador So MD [address] [place] [address] [address]IVE [address] [place] [address] Health Maintenance Due Date Last Done Comments [...] AM EST Performed at: 01 - [facility] [address] [id number] Mixer And Scaler: Radha Preston MD, Phone: [phone] us Shannan Benavidez APPLICATION SECURITY ENGINEER LAB BLOOD ORDERABLES Final R esult [facility] 1 * IKE DEXA APPEND SKELETON (10/29/2023 11:54 AM EDT) Anatomical Region Laterality Modality Mammography 10/29/2023 11:1 9 AM EDT Narrative 10/29/2023 11:54 AM EDT [facility] Diagnostic Imaging Department [address] [place] [address] Patient: NIKKY MCGRATHCeci Brito/Age/Sex: 1935 - 87 - F Unit#: [id number] Location/Status: SPDIMAM/REG CLI Mnemonic/Ordering Site: [facility] Ordering Physician: DUYEN BREAUX MD Ike Dexa [...] is diagnostic of osteoporosis. IMPRESSION: Osteoporosis. Code 46849 Dictating Physician: AL LAU MD Electronically Signed by: AL LAU MD Dic Date/Time: 10/29/23 1152 Sign date/Time: 10/29/23 1154 Procedure Note Al Lau MD - 01/20/2024 [facility] Diagnostic Imaging Department [address] [place] [address] Patient: LAURIMIGNON/Age/Sex: 1935 - 87 - F Unit#: [id number] Location/Status: SPDIMAM/REG CLI [facility]emonic[facility] Ordering Physician: DUYEN BREAUX MD Ike Dexa [...] is diagnostic of osteoporosis. IMPRESSION: Osteoporosis. Code 13033 Dictating Physician: AL LAU MD Electronically Signed by: AL LAU MD Dic Date/Time: 10/29/23 1152 Sign date/Time: 10/29/23 1154 Duyen Breaux MD IMG BI PROCEDURES Final Result from Last 3 Months or Most Recently Relevant to Health Maintenance [place] [address] [place] [address] MEDICARE ADVANTAGE Care Teams Bilingual Loan Processor Relationship Specialty Start Date End Date Joseph Wagner MD [address] [place] [address] PCP - General Internal Medicine 04/27/24
--- OUTSIDE RECORDS SUMMARY | 2024-12-16 11:46 | XMS_ITS | Patient Health Record ---
Author Organization [facility] Address [address] [place] [address] Care Team Providers Care Bread Wrapper Name Role Phone oJseph Wagner MD Primary Care Provider Unavail able MashaAdrian petersen Unavailable [phone] Allergies Allergen (clinical drug ingredient) Drug/Non Drug [...] Status Risk Notes Problem Acquired hallux valgus (35887488) Hallux valgus (acquired), left foot (M20.12) Active confirmed Problem Acquired hallux valgus (21260081) Hallux valgus (acquired), right foot (M20.11) Active confirmed Plan Of Treatment No Information Insurance Providers Payer Name Payer Address Payer Phone Subscriber Number Group Number Insured Name Patient Relationship to Insured Coverage Start Date Coverage End Date [employer] [place] Medicare Advantage [address] [place] [address] [phone] [id number] Mignon Mcgrath Self - patient is the insured Medical (General) History Medical History History ICD Code Arthritis Back,Hip,and Knee pain Broken bones Cataracts covid-19 Diverticulosis Gall bladder problems Headaches/Migraines Heart disease Osteoporosis Sciatica chronic sinusitis Measles Mumps Chicken pox Surgical History Surgery Date(Month/Year) gall bladder 04/1992
== END 2024-12-15 10:57 | disposition home or self-care (01) ==
LOC: HO.HOSX 10:56
PROVIDERS: Visit Provider Orthopaedic Surgery
DX: M25.561 Pain in right knee (principal); Z96.651 Presence of right artificial knee joint
CPT/HCPCS: 73562; 99212

== ENCOUNTER 2024-12-15 11:19 | Outpatient (AMB) | payer MEDICARE, SELFPAY ==
[2024-12-15 11:23] VITALS: BMI 23.3
--- NOTE | 2024-12-15 11:23 | MHC.OFFVIS ---
Vital Signs 12/15/24 11:23 Height 5 ft 5 in Weight 140 lb BMI 23.3 Intake Visit Reasons: OV- R TKA w/DR 12/16/23 Intake Note: Mignon is a 89 year old female who presents for follow up after undergoing right total knee replacement surgery on 12/16/2023. She reports minimal discomfort in her right knee. She continues with her home exercise program. She takes Tylenol as needed for her discomfort. She does walk with a cane when she is out of her home because of chronic low back pain. Allergies omeprazole (From [employer] Allergy (Severe, Verified 12/15/24 11:24) severe headache Medication List - Last Reconciled 12/15/24 by Kyrie Marks MD acetaminophen 650 mg (2 x 325 mg) PO Q6H PRN 30 days albuterol sulfate 90 mcg/actuation 2 puffs inhalation QID PRN amiodarone 100 mg PO DAILY amoxicillin 2,000 mg (4 x 500 mg) PO ONCE 1 day apixaban (Eliquis) 5 mg PO BID calcium carbonate 500 mg PO DAILY cholecalciferol (vitamin D3) 10 mcg PO DAILY PRN diltiazem HCl ER (DILT-XR) 240 mg PO DAILY furosemide 20 mg PO DAILY PRN gabapentin 100 mg PO TID mecobalamin (vitamin B12) 1,000 mcg IM QMONTH metoprolol tartrate 12.5 mg PO BID rosuvastatin 10 mg PO DAILY sennosides (Senna Lax) 17.2 mg (2 x 8.6 mg) PO BEDTIME 30 days teriparatide 20 mcg subcut DAILY walker Folding front wheeled walker [facility] Medical History Pernicious anemia Skin cancer Arthritis History of cardioversion COPD (chronic obstructive pulmonary disease) Trigeminal neuralgia Fracture Osteopenia Osteoporosis Pancreatitis Atrial fibrillation Surgical History Hx of endoscopic retrograde cholangiopancreatography Hx of tonsillectomy Hx of vertebroplasty H/O colonoscopy History of cholecystectomy (~2003) Hx of right knee surgery (Unknown) Social History (Updated 01/23/24 @ 09:27 by MARGE Dougherty) Household Members: None Housing: Condominium Are you a primary rn progressive care to a significant other at home: No Do you presently have visiting nurse or other home services: No Patient Tobacco Use Status: Former Tobacco user Tobacco use type: Cigarette Years Smoked: 5 service: No Current occupational status: retired Physical Exam Vital Signs: BMI result Body Mass Index 23.3 Const Other: Well-nourished well-developed very friendly female awake alert and oriented x3 in no acute distress Extrem Other: Bilateral lower extremity examination shows good capillary refill, no skin lesions noted, normal sensation light touch Right knee examination shows that the surgical incision is well healed, no erythema, full active extension and flexion to 125 degrees, her patella tracks well Results Reviewed Results Reviewed: X-rays of the patient's right knee taken today show a total knee arthroplasty in good position with no signs of loosening, no acute bony abnormalities Assessment & Plan Assessment & Plan (1) Right knee pain: Code(s): M25.561 - Pain in right knee Category: Medical Plan Ms. Mcgrath continues to do well after undergoing right total knee replacement surgery on 12/16/2023. She will continue with her home exercise program. She does know to take antibiotics before any dental work. She will contact me prior to her annual follow-up appointment should any questions or concerns arise. Feel free to call me at any time should questions regarding her orthopedic management arise. I spent 20 minutes in reviewing the patient's records and imaging studies, seeing the patient and documenting in the medical record. Orders: Orders XR knee RT 3V Today M25.561 - Pain in right knee Coding Level of Care Code Est Pt Level 3 (95996) Complex EM visit Add On G2211 Diagnoses Right knee pain M25.561
--- OUTSIDE RECORDS SUMMARY | 2024-12-15 12:41 | XMS_ITS | Clinical Summary ---
Author Organization [facility] [employer] Address [address] [place] [address] Phone Care Team Providers Care Block Hacker Name Role Phone Joseph Wagner MD Primary Care Provider + [phone] Allergies Active Allergy Reactions Criticality Noted Date Comments Clonidine 04/02/2024 Omeprazole 04/02/2024 Medications albuterol HFA (PROAIR HFA ; PROVENTIL HFA [...] a day. 180 each 1 06/10/2024 Active Active Problems Problem Noted Date Diagnosed Date [...] her next office visit. Carotid artery disease ([facility] V24) 01/09/2023 Overview (04/02/2024): Last Assessment & Plan: Recent carotid duplex showing 50% bilateral carotid stenosis. Patient continues on statin. A-fib ([facility] V24, [facility] V28) 06/10/2020 Overview (04/02/2024): Last Assessment & Plan: History of paroxysmal atrial fibrillation on amiodarone for rhythm control. Last pulmonary function testing 02/2023 was normal. Last labs were in August which were normal. Her [id number] score 4 representing a 4.8% risk for [...] excellent control. Continue with metoprolol as prescribed. Social History Tobacco Use Types Packs/Day Years Used Date Smoking Tobacco: Never Smokeless Tobacco: Never Alcohol Use Standard Drinks/Week Comments Not Currently 0 (1 standard drink = 0.6 oz pur e alcohol) Comments Unknown Sex and Gender Information Value Date Recorded Sex Assigned at Not on file Legal Sex Female 11:49 AM EST Gender Identity Not on file Sexual Orientation Not on file Obstetrics History Last Filed [...] Info) Description 02/02/2025 11:00 AM EDT Appointment [facility] Pulmonary [address] [place] [address] 02/10/2025 1:00 PM EDT Office Visit [facility] Cardiology [address] [place] [id number] Salvador So MD [address] [place] [address] [address] [place] [address] Health Maintenance Due Date Last Done Comments DTaP,Tdap,and Td Vaccines (1 - Tdap) 11[birth year]03/1954 Pneumococcal Vaccine: 50+ Years (1 of 2 - PCV) 11/03/1955 Zoster Vaccines (1 of 2) 1986 Cholesterol Screening (Lipid Panel) 05/12/2022 Depression Screening 05/12/2022 Falls Risk Assessment 05/12/2022 Medicare Annual Wellness Visit 05/12/2022 Social Influencers of Health Screening 05/12/2022 COVID-19 Vaccine ( season) 2024 03/12/2024, 03/25/2023, 05/20/2022, Additional history exists Influenza Vaccine (#1) 2025 , 03/05/2023, 04/28/2022, Additional history exists Hypertension/CHF/CAD Annual BMP Blood Test 06/10/2025 06/10/2024 Osteoporosis Screening (Bone Density Screening) 10/28/2033 10/29/2023, 10/29/2023, 10/27/2021, Additional history exists RSV Immunization Adult Patients Completed 03/05/2023 HIB Vaccines Aged Out No longer eligi [...] patient's age to complete this topic Meningococcal B Vaccine Aged Out No l onger eligible based on patient's age to complete this topic RSV Immunization Patients Under 20 months Aged Out No longer eligible based on patient's age to complete this topic Varicella Vaccines Aged Out No longer eligible based on patient's age to complete this topic Procedures Procedure Name Priority Date/Time Associated Diagnosis Comments COMPREHENSIVE METABOLIC PANEL Routine 06/10/2024 10:24 AM EST Atrial fibrillation, unspecified type (CMS/HCC V24, CMS/HCC V28) IKE DEXA APPEND SKELETON Routine 10/29/2023 11:54 AM EDT Encounter for screening for osteoporosis from Last 3 Months or Most Recently Relevant to Health Maintenance Results * (ABNORMAL) Comprehensive metabolic panel (06/10/2024 10:24 [...] 44 - 121 IU/L [facility] 1 Aspartate aminotransferase (AST) 20 0 - 40 IU/L [facility] 1 Alanine Aminotransferase (ALT) 15 0 - 32 IU/L [facility] 1 Blood Venous blood specimen / Unknown 06/10/2024 10:24 AM EST 06/10/2024 Narrative [facility] 1 - 06/11/2024 4:06 AM EST Performed at: 01 - [facility] [address] [id number] Medical Administrator: Radha Preston MD, Phone: [phone] us Shannan Benavidez COMMUNITY DEVELOPMENT SPECIALIST LAB BLOOD ORDERABLES Final R esult [facility] 1 * IKE DEXA APPEND SKELETON (10/29/2023 11:54 AM EDT) Anatomical Region Laterality Modality Mammography 10/29/2023 11:1 9 AM EDT Narrative 10/29/2023 11:54 AM EDT [facility] Diagnostic Imaging Department [address] [place] [id number] Patient: NIKKY MCGRATHCeci Brito/Age/Sex: 1935 - 87 - F Unit#: [id number] Location/Status: SPDIMAM/REG CLI Mnemonic/Ordering Site: [facility] Ordering Physician: DUYEN BREAUX MD Ike Dexa Append Skeleton - 10/29/23 - 1146 Report Status:Signed HISTORY: The patient is an 87-year-old postmenopausal female with clinical concern for metabolic bone disease. FINDINGS: Dual [...] is diagnostic of osteoporosis. IMPRESSION: Osteoporosis. Code 22456 Dictating Physician: LA LAU MD Electronically Signed by: AL LAU MD Dic Date/Time: 10/29/23 1152 Sign date/Time: 10/29/23 1154 Procedure Note Al Lau MD - 01/20/2024 [facility] Diagnostic Imaging Department [address] [place] [address] Patient: LAURIMIGNON/Age/Sex: 1935 - 87 - F Unit#: [id number] Location/Status: SPDIMAM/REG CLI [facility] Ordering Physician: DUYEN BREAUX MD Ike Dexa Append Skeleton - [...] is diagnostic of osteoporosis. IMPRESSION: Osteoporosis. Code 48004 Dictating Physician: AL LAU MD Electronically Signed by: AL LAU MD Dic Date/Time: 10/29/23 1152 Sign date/Time: 10/29/23 1154 Duyen Breaux MD IMG BI PROCEDURES Final Result from Last 3 Months or Most Recently Relevant to Health Maintenance [place] [address] [place] [address] MEDICARE ADVANTAGE Care Teams Block Hacker Relationship Specialty Start Date End Date Joseph Wagner MD [address] [place] [address] PCP - General Internal Medicine 04/27/24
--- OUTSIDE RECORDS SUMMARY | 2024-12-15 12:41 | XMS_ITS | Patient Health Record ---
Author Organization [facility] Address [address] [place] [address] Care Team Providers Care Slot Operations Manager Name Role Phone Joseph Wagner MD Primary Care Provider Unavail able MashaAdrian petersen Unavailable [phone] Allergies Allergen (clinical drug ingredient) Drug/Non Drug Allergy documented on EMR Reaction Allergy Type Onset Date Status omeprazole PriLOSEC headache Drug Allergy Active Reason For Referral No Information Medications Medication SIG (Take, Route, Frequency, Duration) Notes Start Date End Date Status Vitamin B12 Active Vitamin D3 Active dilTIAZem HCl ER 240 MG 1 capsule Orally Once a day; Duration: 30 day(s) Active Eliquis 5 MG as directed Orally Active Amiodarone HCl 100 MG 1 tablet Orally On ce a day; Duration: 30 day(s) Active Rosuvastatin Calcium 5 MG 1 tablet Orall y Once a day; Duration: 30 day(s) Active Metoprolol Tartrate 25 MG 1 tablet with food Orally Twice a day; Duration: 30 day(s) Active Social History Tobacco Use: Social History Observation Description Date Details (start date - stop date) Former Smoker NA - NA Tobacco Use/Smoking Question Answer Notes Are you a: former smoker Additional Findings: Tobacco Non-User Ex-cigaret te smoker Alcohol Screen Question Answer Notes Did you have a drink containing alcohol in the p ast year? No Points 0 Interpretation Negative Problems Problem Type SNOMED Code ICD Code Onset Dates Problem Status W/U Status Risk Notes Problem Acquired hallux valgus (61881900) Hallux valgus (acquired), left foot (M20.12) Active confirmed Problem Acquired hallux valgus (13576895) Hallux valgus (acquired), right foot (M20.11) Active confirmed Plan Of Treatment No Information Insurance Providers Payer Name Payer Address Payer Phone Subscriber Number Group Number Insured Name Patient Relationship to Insured Coverage Start Date Coverage End Date [employer] [place] Medicare Advantage [address] [place] [address] [phone] [id number] Mignon Mcgrath Self - patient is the insured Medical (General) History Medical History History ICD Code Arthritis Back,Hip,and Knee pain Broken bones Cataracts covid-19 Diverticulosis Gall bladder problems Headaches/Migraines Heart disease Osteoporosis Sciatica chronic sinusitis Measles Mumps Chicken pox Surgical History Surgery Date(Month/Year) gall bladder 04/1992
== END 2024-12-15 11:48 | disposition home or self-care (01) ==
LOC: HO.HOS 11:20
PROVIDERS: PCP Internal Medicine; Visit Provider Orthopaedic Surgery
DX: M25.561 Pain in right knee (principal); Z96.651 Presence of right artificial knee joint
CPT/HCPCS: 99213; G2211

== ENCOUNTER → 2024-12-15 11:20 | Outpatient (BNV) | payer MEDICARE, SELFPAY | PROVIDERS: Visit Provider Radiology Diagnostic Radiology | DX: M25.561 Pain in right knee (principal) | CPT/HCPCS: 73562 ==

== ENCOUNTER 2025-01-21 13:47 | Outpatient (AMB) | payer MEDICARE, SELFPAY ==
--- NOTE | 2025-01-21 13:51 | A.OFFVIS_ITS ---
Vital Signs 01/21/25 13:51 Height 5 ft 5 in Intake Visit Reasons: 6m Allergies omeprazole (From [employer]) Allergy (Severe, Verified 12/15/24 11:24) severe headache Medication List - Last Reconciled 01/21/25 by Kailee Brady CNP acetaminophen 650 mg (2 x 325 mg) PO Q6H PRN 30 days albuterol sulfate 90 mcg/actuation 2 puffs inhalation QID PRN amiodarone 100 mg PO DAILY amoxicillin 2,000 mg (4 x 500 mg) PO ONCE 1 day apixaban (Eliquis) 5 mg PO BID calcium carbonate 500 mg PO DAILY cholecalciferol (vitamin D3) 10 mcg PO DAILY PRN diltiazem HCl ER (DILT-XR) 240 mg PO DAILY furosemide 20 mg PO DAILY PRN gabapentin 100 mg orally 2 capsules twice a day and 3 capsules at bedtime; mecobalamin (vitamin B12) 1,000 mcg IM QMONTH metoprolol tartrate 12.5 mg PO BID rosuvastatin 10 mg PO DAILY sennosides (Senna Lax) 17.2 mg (2 x 8.6 mg) PO BEDTIME 30 days teriparatide 20 mcg subcut DAILY walker Folding front wheeled walker HPI Comments Details: Trigeminal neuralgia pain has been okay. No further flares. She was taking gabapentin 200mg twice a day and 300mg at bedtime. No medication side effects. Walking with cane, no falls. Had trigeminal neuralgia flare around 10/09/2024 and dose of gabapentin was increased to 200mg three times a day. Had TN flare in early 11/2024 and gabapentin dose was increased to 200mg twice a day and 300mg at bedtime. It could be triggered by talking, chewing, touching face, or brushing teeth. She developed sharp, electrical shock-like pains in the right face that started in 05/2023. Since 02/2023, she had some sinus infections treated initially with antibiotics and then with Medrol Dosepak. She had pain in the right V2 and B1 distribution primarily triggered by touching. Moderate degree of pain lasting for a second multiple times a day. She took carbamazepine 100mg/day for a week and stopped it because of nausea and vomiting. Besides that, it was interfering with 3 of her current medications. [facility] Medical History (Updated 01/21/25 @ 13:54 by Kailee Brady CNP) Pernicious anemia Skin cancer Arthritis History of cardioversion COPD (chronic obstructive pulmonary disease) Trigeminal neuralgia Fracture Osteopenia Osteoporosis Pancreatitis Atrial fibrillation Surgical History (Updated 01/02/24 @ 13:10 by Michelle Lee) Hx of endoscopic retrograde cholangiopancreatography Hx of tonsillectomy Hx of vertebroplasty H/O colonoscopy History of cholecystectomy (~2003) Hx of right knee surgery (Unknown) Social History (Updated 01/23/24 @ 09:27 by MARGE Dougherty) Household Members: None [facility] Are you a primary infant caregiver to a significant other at home: No Do you presently have visiting nurse or other home services: No Patient Tobacco Use Status: Former Tobacco user Tobacco use type: Cigarette Years Smoked: 5 service: No Current occupational status: retired Review of Systems Const Denies chills, Denies daytime sleepiness, Denies difficulty sleeping, Denies fatigue, Denies fever(s), Denies frequent falls, Denies headache(s), Denies increased appetite, Denies poor appetite, Denies snoring, Denies weakness, Denies weight gain and Denies weight loss Eyes Denies loss of vision ENT Denies vertigo, Denies dizziness, Denies headache(s) and Reports neck pain Card Denies chest pain at rest, Denies chest pain with activity, Denies syncope, Denies leg edema, Denies palpitations, Denies dyspnea and Denies dyspnea on exertion Resp Denies cough, Denies dyspnea, Denies dyspnea on exertion and Denies snoring GI Denies abdominal pain, Denies constipation, Denies heartburn, Denies diarrhea and Denies nausea Denies urinary frequency, Denies urinary incontinence and Denies urinary urgency Musc Denies abnormal gait, Reports back pain, Reports myalgias, Reports arthralgias, Reports neck pain, Denies numbness and Denies tingling Neuro Denies abnormal gait, Denies vertigo, Denies dizziness, Denies syncope, Denies frequent falls, Denies headache(s), Denies lack of coordination, Denies loss of vision, Denies memory loss, Denies numbness, Denies Other visual disturbances, Denies restless legs, Denies seizure-like activity, Denies tingling, Denies paresthesias, Denies tremor(s) and Denies weakness Psych Denies anxiety, Denies depression, Denies auditory hallucinations, Denies memory loss and Denies visual hallucinations Endo Denies fatigue and Denies palpitations Physical Exam Const Other: General Appearance:? normal, in no acute distress. Heart:? S1, S2 normal, no murmurs. Lungs:? clear anteriorly and posteriorly. Musculoskeletal:? normal. Extremities:? no edema. Psych:? alert, oriented, cognitive function intact, cooperative with exam. Neuro Other: Abnormal Neurological Findings:?Walking with cane.? Mental Status: alert and oriented X 3. Normal attention, orientation, memory, and affect. Cranial Nerves: Pupils are equal, round, and reactive to light. External ocular muscles are intact. Visual hermosillo are full, no ptosis. Face is symmetrical, no facial weakness or droop. Facial sensations are normal. Tongue protrudes in midline. Palate elevates symmetrically. Shoulder shrugging is normal Motor Examination: Normal muscle tone, bulk and strength. No atrophy or fasciculations. No drift of the extended upper extremities. DTR 2+. Plantars are flexor. Sensory Exam: Normal light touch, temperature, pinprick, vibration, and joint- position sensations. Rhomberg sign is absent. Coordination: No ataxia. No titubation. Dhkrbi-am-mzdd, jkwn-zptd-ttys test, and rapid alternating movements were normal. Gait Exam: With cane. Cerebellar Signs: Olwnqq-gy-rzrt and xsjo-hh-bofj is normal. No dysdiadochokinesia. Extrapyramidal System: No tremor, rigidity with normal facial expressions. No bradykinesia. No bradyphrenia. Normal arm swing and posture. No propulsion or retropulsion. Speech: Normal. No dysphasia or dysarthria. Assessment & Plan Assessment & Plan (1) Trigeminal neuralgia: Comment: dx 09/2023-gabapentin prescribed Code(s): G50.0 - Trigeminal neuralgia Category: Medical Plan: Continue gabapentin 100mg 2 capsules twice a day and 3 capsules at bedtime. Plan Meds tried: carbamazepine Medications: Changed From gabapentin 100 mg orally 2 capsules twice a day and 3 capsules at bedtime; To gabapentin 100 mg orally 2 capsules twice a day and 3 capsules at bedtime; 210 caps 5RF 30 days Coding Level of Care Code Est Pt Level 4 (17172) Diagnoses Trigeminal neuralgia G50.0
--- OUTSIDE RECORDS SUMMARY | 2025-01-21 13:57 | XMS_ITS | Clinical Summary ---
Author Organization [facility] [email or web address] Address [address] [place] [address] Phone Care Team Providers Care Coordinator Of Genetic Services Name Role Phone Joseph Wagner MD Primary Care Provider + [phone] Allergies Active Allergy Reactions Criticality Noted Date Comments Clonidine 04/02/2024 Omeprazole 04/02/2024 Medications albuterol HFA (PROAIR HFA ; PROVENTIL HFA ; VENTOLIN HFA) 90 mcg/actuation inhaler Inhale into the lungs daily as needed. 8 Active cholecalcifero l (VITAMIN D-3) 25 mcg (1,000 unit) tablet Take 2 tablets (2,000 Units total) by mouth 1 (one) time each day. Active cyanocobalamin , vitamin B-12, (VITAMIN B-12 INJ) Inject as directed every 30 days. Active furosemide (LASIX) 20 mg tablet Take 1 Tablet by mouth daily as needed (edema). 4 Active gabapentin (NEURONTIN) 100 mg capsule Take 1 Capsule by mouth 3 times daily. Active rosuvastatin (CRESTOR) 10 mg tablet Take 1 Tablet by mouth daily. Active DILT-XR 240 mg 24 hr capsule TAKE 1 CAPSULE BY MOUTH 1 TIME EACH DAY. 90 capsule 1 5 Active Eliquis 5 mg tablet TAKE 1 TABLET BY MOUTH TWICE A DAY 180 tablet 1 5 Active amiodarone (PACERONE) 100 mg tablet TAKE 1 TABLET BY MOUTH 1 TIME EACH DAY. 90 tablet 1 5 Active amiodarone (PACERONE) 100 mg tablet Take 1 tablet (100 mg total) by mouth 1 (one) time each day. 90 tablet 1 4 025 Discontinued dilTIAZem XR (DILACOR XR) 240 mg 24 hr capsule Take 1 capsule (240 mg total) by mouth 1 (one) time each day. 90 capsule 1 5 025 Discontinued apixaban (Eliquis) 5 mg tablet Take 1 tablet (5 mg total) by mouth 2 (two) times a day. 180 each 1 5 025 Discontinued Active Problems Problem Noted Date Diagnosed Date [...] her next office visit. Carotid artery disease ([facility] V24) 01/09/2023 Overview (04/02/2024): Last Assessment & Plan: Recent carotid duplex showing 50% bilateral carotid stenosis. Patient continues on statin. A-fib ([facility] V24, [facility] V28) 06/10/2020 Overview (04/02/2024): Last Assessment & Plan: History of paroxysmal atrial fibrillation on amiodarone for rhythm control. Last pulmonary function testing 02/2023 was normal. Last labs were in August which were normal. Her [id number] score 4 representing a 4.8% risk for [...] Info) Description 02/02/2025 11:00 AM EDT Appointment [facility] Pulmonary [address] [place] [id number] 02/10/2025 1:00 PM EDT Office Visit [facility] [address] [place] [address] Salvador So MD [address] [place] [address] DRIVE [address] [place] [address] Health Maintenance Due Date Last Done Comments DTaP,Tdap,and Td Vaccines (1 - Tdap) 11/03/1954 Pneumococcal Vaccine: 50+ Years (1 of 2 - PCV) 11/03/1954 Zoster Vaccines (1 of 2) 1986 Cholesterol Screening (Lipid Panel) 05/12/2022 Falls Risk Assessment 05/12/2022 Medicare Annual Wellness Visit 05/12/2022 Social Influencers of Health Screening 05/12/2022 Depression Screening 06/03/2024 COVID-19 Vaccine ( season) 2024 03/12/2024, 03/25/2023, [...] fibrillation, unspecified type (CMS/HCC V24, CMS/HCC V28) [facility] DEXA APPEND SKELETON Routine 10/29/2023 11:54 AM [...] 4:06 AM EST Performed at: 01 - [facility] [id number] Audit Clerks Supervisor: Radha Preston MD, Phone: [phone] us Shannan Benavidez PILE DRIVER OPERATOR LAB BLOOD ORDERABLES Final R esult [facility] 1 * [facility] DEX[facility] APPEND SKELE[facility] (10/29/2023 11:54 AM EDT) Anatomical Region Laterality Modality Mammography 10/29/2023 11:1 9 AM EDT Narrative 10/29/2023 11:54 AM EDT [facility] Diagnostic Imaging Department [address] [place] [address] Patient: MIGNON MCGRATH David /Age/Sex: 1935 87 - F Unit#: [id number] Location/Status: [facility] CLI Mnemonic/Ordering Site: [facility] Ordering Physician: DUYEN BREAUX MD [...] is diagnostic of osteoporosis. IMPRESSION: Osteoporosis. Code 58553 Dictating Physician: AL LAU MD Electronically Signed by: AL LAU MD Dic Date/Time: 10/29/23 1152 Sign date/Time: 10/29/23 1154 Procedure Note Al Lau MD - 01/20/2024 [facility] Diagnostic Imaging Department [address] [place] [address] Patient: MIGNON MCGRATH D.O.B./Age/Sex: 1935 - 87 - F Unit#: [id number] Location/Status: SPDIMAM/REG CLI Mnemonic/[facility] Ordering Physician: DUYEN BREAUX MD [...] is diagnostic of osteoporosis. IMPRESSION: Osteoporosis. Code 03710 Dictating Physician: AL LAU MD Electronically Signed by: AL LAU MD Dic Date/Time: 10/29/23 1152 Sign date/Time: 10/29/23 1152 Duyen Breaux MD IMG BI PROCEDURES Final Result from Last 3 Months or Most Recently Relevant to Health Maintenance Insurance [employer] [place] MEDICARE ADVANTAGE Care Teams Coordinator Of Genetic Services Relationship Specialty Start Date End Date Joseph Wagner MD [address] [place] [address] PCP - General Internal Medicine 04/27/24
--- OUTSIDE RECORDS SUMMARY | 2025-01-21 13:57 | XMS_ITS | Patient Health Record ---
Author Organization [facility] Address [address] [place] [address] Care Team Providers Care Legal Financial Specialist Name Role Phone Joseph Wagner MD Primary Care Provider Unavail able MashaAdrian petersen Unavailable [phone] Allergies Allergen (clinical drug ingredient) Drug/Non Drug [...] Status Risk Notes Problem Acquired hallux valgus (16862465) Hallux valgus (acquired), left foot (M20.12) Active confirmed Problem Acquired hallux valgus (99552044) Hallux valgus (acquired), right foot (M20.11) Active confirmed Plan Of Treatment No Information Insurance Providers Payer Name Payer Address Payer Phone Subscriber Number Group Number Insured Name Patient Relationship to Insured Coverage Start Date Coverage End Date [employer] [place] Medicare Advantage [address] [place] [address] [phone] [id number] Mignon Mcgrath Self - patient is the insured Medical (General) History Medical History History ICD Code Arthritis Back,Hip,and Knee pain Broken bones Cataracts covid-19 Diverticulosis Gall bladder problems Headaches/Migraines Heart disease Osteoporosis Sciatica chronic sinusitis Measles Mumps Chicken pox Surgical History Surgery Date(Month/Year) gall bladder 04/1992
--- OUTSIDE RECORDS SUMMARY | 2025-01-21 13:57 | XMS_ITS | Clinical Summary ---
Author Organization [facility] Address [address] [address] Phone Care Team Providers Care [employer] Certified Internetwork Expert Name Role Phone Unavailable Primary Care Provider Unavailabl e Social History Tobacco Use Types Packs/Day Years Used Date Smoking Tobacco: Never Assessed Education Answer Date Recorded Are you interested in more education? Not on kerri e 11/13/2023 Are you concerned about learning? Not on file 11/13/2023 No 11/13/2023 No 11/13/2023 Digital Access Answer Date Recorded No 11/13/2023 No 11/13/2023 Reliable internet access at home? Not on file 11/13/2023 Device with a working camera? Not on file Comments Unknown Sex and Gender Information Value Date Recorded Sex Assigned at Not on file Legal Sex Female 1:50 PM EDT Gender Identity Not on file Sexual Orientation Not on file Plan of Treatment Not on file Medical Devices Not on file Insurance [employer] [place] MED[employer] HMO REPLACEMENT [facility] MEDICARE HMO REPLACEMENT [facility] MEDICARE HMO [place]AC[place] [address] [place] [address] MEDICARE HMO REPLACEMENT [facility] MEDICARE HMO REPLACEMENT [employer] MED[employer] H[employer] REPLACEMENT Additional Source Comments The information contained in this document represents components of the legal health record. It is not the complete legal health record.[facility]
== END 2025-01-21 14:08 | disposition home or self-care (01) ==
LOC: HO.HSM 13:48
PROVIDERS: PCP Internal Medicine; Referring Provider Internal Medicine; Visit Provider Registered Nurse
DX: G50.0 Trigeminal neuralgia (principal)
CPT/HCPCS: 99214

== ENCOUNTER → 2025-01-21 13:47 | Outpatient (BNVA) | payer MEDICARE, SELFPAY | PROVIDERS: PCP Internal Medicine; Referring Provider Internal Medicine; Visit Provider Registered Nurse | DX: G50.0 Trigeminal neuralgia (principal) | CPT/HCPCS: 99212 ==